=== PATIENT | male | born 1965 | race Two or more races ===

== ENCOUNTER 2021-02-20 05:09 | Emergency (ER) | payer OTHER, SELFPAY ==
--- NOTE | ~2021-02-20 | CT_ITS ---
EXAMINATION: CT HEAD WITHOUT CONTRAST CLINICAL INFORMATION: Syncope. Anticoagulated. COMPARISON: None TECHNIQUE: Contiguous axial imaging was performed from the skull base to vertex without intravenous administration of contrast. This CT examination was performed using dose optimization techniques as appropriate, variously including the following: *Automated exposure control *Adjustment of mA and/or kV according to patient size (this includes techniques or standardized protocols for targeted exams where dose is matched to indication/reason for exam; i.e. extremities or head) *Use of iterative reconstruction technique DLP: 680 mGy-cm FINDINGS: There is no evidence of acute intracranial hemorrhage or territorial infarction. No abnormal mass effect or midline shift is seen. [place] to white matter differentiation is well preserved. No extra-axial fluid collections are identified. The ventricles are normal in size. There is no abnormal attenuation within the brain parenchyma. The osseous structures and soft tissues are normal. The mastoid air cells and visualized portions of the paranasal sinuses are well aerated. CT/CT head/brain wo con IMPRESSION: Unremarkable exam.
--- NOTE | ~2021-02-20 | XR_ITS ---
EXAMINATION: XR CHEST CLINICAL INFORMATION: Dizziness. Syncope. COMPARISON: Chest radiograph 03/20/2019. TECHNIQUE: Frontal view of the chest was obtained. FINDINGS: The cardiac silhouette is enlarged in a rounded configuration compared with 03/20/2019. Multiple unfractured median sternotomy wires and scattered mediastinal vascular clips are noted. No effusions or pneumothoraces are identified. A normal pattern of pulmonary vasculature is noted. Multiple right glenoid suture anchors are noted. XR/XR chest 1V IMPRESSION: -Enlarged cardiac silhouette which may represent cardiomegaly or the presence of a pericardial effusion. Findings are new compared with 03/20/2019. -Lungs clear.
[2021-02-20 05:12] VITALS: BP 120/80; PULSE 70; O2SAT 98
--- NOTE | 2021-02-20 05:16 | ECG_ITS ---
Test Reason : DIZZINESS Blood Pressure : / mmHG Vent. Rate : 062 BPM Atrial Rate : 062 BPM P-R Int : 138 ms QRS Dur : 082 ms QT Int : 438 ms P-R-T Axes : 057 -17 084 degrees QTc Int : 444 ms Normal sinus rhythm Left anterior fascicular block Nonspecific ST abnormality Abnormal ECG No previous ECGs available Referred By: Generic ED Physician Electronically Signed By:MARIUM PADRON MD
[2021-02-20 05:24] VITALS: BP 118/68; PULSE 58; RESP 16; TEMP 36.9; O2SAT 99; BMI 31.6
--- NOTE | 2021-02-20 06:02 | PC.NURSE ---
IV established, labs and EKG obtained. CXR at bedside. Plan to transfer to room 3 once able.
[2021-02-20 06:03] LABS: Basophils Percent Auto 0.6 % (0-2); Eosinophils Absolute Auto 0.1 X10*3/uL (0.0-0.4); Eosinophils Percent Auto 2.2 % (0-4); Hematocrit 44.6 % (42.0-52.0); Hemoglobin 14.6 g/dl (14.0-18.0); Imm Gran Abs Auto 0.01 X10*3/uL (0.00-0.03); Imm Gran Pct Auto 0.2 % (0.0-0.4); Lymphocytes Absolute Auto 1.5 X10*3/uL (1.2-4.9); Lymphocytes Percent Auto 28.9 % (20-40); MANUAL DIFF FLAG NO; Mean Corpuscular HGB Conc 32.7 g/dl (31.0-36.0); Mean Corpuscular Hemoglobin 31.1 pg (27.0-33.0); Mean Corpuscular Volume 94.9 fL (80.0-98.0); Mean Platelet Volume 11.5 fL (9.4-12.4); Monocytes Absolute Auto 0.5 X10*3/uL (0.1-1.2); Monocytes Percent Auto 10.4 % (2-11); Neutrophils Absolute Auto 2.9 x10*3/uL (2.0-8.3); Neutrophils Percent Auto 57.7 % (45-73); Platelet Count 159 X10*3/uL (160-400); Red Cell Distribution Width 14.9 % (11.0-16.0)
[2021-02-20 06:14] LABS: COVID-19 Test Positive (Negative)
[2021-02-20 06:41] LABS: Troponin-I High Sensitivity 7.1 ng/L (<3.5-35.0)
[2021-02-20 07:24] LABS: Anion Gap 13 (12-20); Blood Urea Nitrogen 16 mg/dL (9-16); Calcium 8.8 mg/dL (8.4-10.2); Carbon Dioxide 23 mmol/L (22-29); Chloride 109 mmol/L (96-108); Creatinine Clr Calc Pharmacy 80.4; Estimated Glomerular Filt Rate > 60; Glucose Random 114 mg/dL (60-115); Potassium 4.1 mmol/L (3.3-5.1); Sodium 141 mmol/L (135-145)
--- NOTE | 2021-02-20 07:51 | ED_ITS ---
HPI - Syncope General Chief Complaint: Syncope Stated Complaint: syncope Time Seen by Provider: 02/20/21 05:26 Source: patient and EMS Mode of arrival: EMS Limitations: no limitations History of Present Illness HPI narrative: 55-year-old male came in for evaluation of syncopal episode. Patient tested positive for COVID recently, been having symptoms of generalized weakness, but no chest pain or difficulty breathing. Patient woke up this morning was trying to get water feeling thirsty patient stated that he was walking unbalanced gait, then noted that he is very pale and diaphoretic then patient passed out witnessed by his . Patient has a history of triple bypass surgery 6 months ago, patient is taking blood thinner. Related Data Allergies Allergy/AdvReac Type Severity Reaction Status Date / Time No Known Allergies Allergy Unverified 12/09/19 14:53 Review of Systems Review of Systems: All other systems are reviewed and are negative Constitutional: Reports as per HPI and Reports no additional constitutional complaints Eyes: Reports as per HPI and Reports no additional eye complaints Reports system reviewed and no additional complaints, except as documented Cardiovascular: Reports as per HPI and Reports no additional cardiovascular complaints Respiratory: Reports as per HPI and Reports no additional respiratory complaints Gastrointestinal: Reports as per HPI and Reports no additional gastrointestinal complaints Genitourinary: Reports no additional female genitourinary complaints Musculoskeletal: Reports no additional musculoskeletal complaints Skin/Breast: Reports system reviewed and no additional complaints, except as docu Psychiatric: Reports no additional psychiatric complaints Endocrine: Reports no additional endocrine complaints Hematologic/Lymphatic: Reports no additional hematologic/lymphatic complaints Allergic/Immunologic: Reports no additional allergic/immunologic complaints Reports system reviewed and no additional complaints, except as documented and Reports Abnormal speech present [facility] Past Medical History Medical History HTN (hypertension) Surgical History S/P triple vessel bypass Social History Social History Patient Tobacco Use Status: Former Tobacco user Quit Date: 08/23/20 Tobacco use type: Cigarette Cigarette Packs Per Day: 0.5 Years Smoked: 30 Advance Directives: No Advance Directives Information Provided: Yes Physical Exam Vital Signs: Vital Signs: Last Vital Signs Temp 98.5 F 02/20/21 05:24 Pulse 59 02/20/21 08:25 Resp 18 02/20/21 08:25 BP 113/67 02/20/21 08:25 Pulse Ox 98 02/20/21 08:25 Body Mass Index 31.6 Vital signs have been reviewed as appeared to be correct. Blood pressure normal. Heart rate normal. Respiration rate normal. Temperature normal. Oxygen saturation normal. Appearance: Alert. Oriented X3. No acute distress. Head: Normal external exam. Normocephalic. Atraumatic. No Harman signs noted. No raccoon eyes noted Eyes: PERRLA. EOMI. Conjunctiva and sclera normal. Eyelids normal. ENT: TM's Normal. Pharynx normal. Uvula midline. Dry mucous membranes. No trismus noted. No drooling noted. No muffled voice noted. Neck: Normal inspection. Neck supple. FROM. No adenopathy. Thyroid Normal. No meningeal signs. No neck mass noted. CVS: Normal heart rate and rhythm. Heart sound normal. No murmurs noted. Pulses normal throughout. Respiratory: No respiratory distress. Painless inspiration. Breath sounds norm al. No wheezes/rales/rhonchi noted. Chest nontender. No accessory muscle usage noted or decreased air movement noted. Abdomen: Soft and nontender. Bowel sounds normal in all 4 quadrants. No distenti on noted. No organomegaly noted. No visible injury noted. Back: No CVA tenderness. Full range of motion noted. Skin: Skin warm and dry. Normal skin color. Normal skin turgor. No rashes/lesions/lacerations noted. Extremities: No lower extremity edema. Extremities exhibit normal range of motion. Extremities nontender. Neuro: Oriented X 3. Cranial nerve exam: II-XII are grossly intact No motor deficit. No sensory deficit. Reflexes normal. Course Course Course Narrative: Assessment and plan. 55-year-old male recently diagnosed with COVID had syncopal episode witnessed by his preceded with looking pale and diaphoretic. Patient appeared dehydrated on the physical exam. Patient had a recent open heart surgery for triple bypass, patient today declined chest pain or shortness of breath, patient had unremarkable EKG and troponin x2 was negative. Patient feels better after getting IV fluids. Patient was instructed to self quarantine for next 2 weeks. Because chest x-ray finding of cardiomegaly patient was instructed to follow-up with his child life specialist. Patient on anticoagulation therapy had a negative CT and normal neuro exam. MDM - Syncope Lab Data Attestation: I reviewed the patient's lab results. Result diagrams: 02/20/21 05:53 02/20/21 06:46 Labs: Lab Results 02/20/21 02/20/21 02/20/21 Range/Units 05:53 05:53 05:53 WBC 5.0 (4.8-10.8) X10*3/uL RBC 4.70 (4.60-5.80) X10*6/uL Hgb 14.6 (14.0-18.0) g/dl Hct 44.6 (42.0-52.0) % MCV 94.9 (80.0-98.0) fL MCH 31.1 (27.0-33.0) pg MCHC 32.7 (31.0-36.0) g/dl RDW 14.9 (11.0-16.0) % Plt Count 159 L (160-400) X10*3/uL MPV 11.5 (9.4-12.4) fL Immature Gran % (Auto) 0.2 (0.0-0.4) % Neut % (Auto) 57.7 (45-73) % Lymph % (Auto) 28.9 (20-40) % [place] % (Auto) 10.4 (2-11) % Eos % (Auto) 2.2 (0-4) % Baso % (Auto) 0.6 (0-2) % Lymph # (Auto) 1.5 (1.2-4.9) X10*3/uL [place] # (Auto) 0.5 (0.1-1.2) X10*3/uL Eos # (Auto) 0.1 (0.0-0.4) X10*3/uL Baso # (Auto) 0.0 (0.0-0.2) X10*3/uL Abs Immat Gran (auto) 0.01 (0.00-0.03) X10*3/uL Absolute Neuts (auto) 2.9 (2.0-8.3) x10*3/uL Absolute Nucleated RBC 0.000 (0.0-0.012) X10*3/uL Nucleated RBC % (auto) 0.0 (0.0-0.2) /100WBC Sodium (135-145) mmol/L Potassium (3.3-5.1) mmol/L Chloride (96-108) mmol/L Carbon Dioxide (22-29) mmol/L Anion Gap (12-20) BUN (9-16) mg/dL Creatinine (0.5-1.4) mg/dL Estim Creat Clear Calc Estimated GFR Random Glucose (60-115) mg/dL Calcium (8.4-10.2) mg/dL Troponin I High Sens 7.1 (<3.5-35.0) ng/L B-Natriuretic Peptide 55 (<100) pg/mL COVID-19 (KIM) Positive A (Negative) COVID-19 Clin Com See Note 02/20/21 02/20/21 Range/Units 06:46 09:25 WBC (4.8-10.8) X10*3/uL RBC (4.60-5.80) X10*6/uL Hgb (14.0-18.0) g/dl Hct (42.0-52.0) % MCV (80.0-98.0) fL MCH (27.0-33.0) pg MCHC (31.0-36.0) g/dl RDW (11.0-16.0) % Plt Count (160-400) X10*3/uL MPV (9.4-12.4) fL Immature Gran % (Auto) (0.0-0.4) % Neut % (Auto) (45-73) % Lymph % (Auto) (20-40) % [place] % (Auto) (2-11) % Eos % (Auto) (0-4) % Baso % (Auto) (0-2) % Lymph # (Auto) (1.2-4.9) X10*3/uL [place] # (Auto) (0.1-1.2) X10*3/uL Eos # (Auto) (0.0-0.4) X10*3/uL Baso # (Auto) (0.0-0.2) X10*3/uL Abs Immat Gran (auto) (0.00-0.03) X10*3/uL Absolute Neuts (auto) (2.0-8.3) x10*3/uL Absolute Nucleated RBC (0.0-0.012) X10*3/uL Nucleated RBC % (auto) (0.0-0.2) /100WBC Sodium 141 (135-145) mmol/L Potassium 4.1 (3.3-5.1) mmol/L Chloride 109 H (96-108) mmol/L Carbon Dioxide 23 (22-29) mmol/L Anion Gap 13 (12-20) BUN 16 (9-16) mg/dL Creatinine 1.12 (0.5-1.4) mg/dL Estim Creat Clear Calc 80.4 Estimated GFR > 60 Random Glucose 114 (60-115) mg/dL Calcium 8.8 (8.4-10.2) mg/dL Troponin I High Sens 7.5 (<3.5-35.0) ng/L B-Natriuretic Peptide (<100) pg/mL COVID-19 (KIM) (Negative) COVID-19 Clin Com Imaging Data Chest x-ray: Radiologist's impression: Enlarged cardiac silhouette which may represent cardiomegaly or the presence of a pericardial effusion. Findings are new compared with 1 CT scan - head: Radiologist's impression: Unremarkable exam. ECG Data Attestation: I personally reviewed and interpreted this ECG as follows: Interpretation: Normal sinus rhythm at 62 beats per minutes, normal intervals, no ST-T changes Discharge Plan Discharge Clinical Impression: Vasovagal syncope, COVID-19 virus infection, Dehydration Patient Disposition: Home, Self-Care Instructions: Dehydration (ED), Covid-19 Viral Syndrome and Novel Coronavirus (ED) Hey/Ath Referrals: Physician,Unknown J [Primary Care Provider] - 2 days Stand Alone Forms: Work/School Release
[2021-02-20 08:24] LABS: B Type Natriuretic Peptide 55 pg/mL (<100)
[2021-02-20 08:25] VITALS: BP 113/67; PULSE 59; RESP 18; O2SAT 98
[2021-02-20 09:55] LABS: Troponin-I High Sensitivity 7.5 ng/L (<3.5-35.0)
--- NOTE | 2021-02-20 10:30 | PC.NURSE ---
NAD, SR ON MONITOR, NO COMPLAINTS
[2021-02-20] MEDS: 0.9 % Sodium Chloride 1,000 ML 999 ML IVCONT (11:05)
== END 2021-02-20 11:13 | disposition home or self-care (01) ==
PROVIDERS: Student in an Organized Health Care Education/Training Program; Emergency Provider Emergency Medicine
DX: U07.1 COVID-19 (principal); R55 Syncope and collapse; E86.0 Dehydration; Z79.01 Long term (current) use of anticoagulants
CPT/HCPCS: 36415; 70450; 71045; 80048; 83880; 84484; 85025; 87635; 93005; 96360; 99284

== ENCOUNTER 2022-11-08 16:01 | Emergency (ER) | payer OTHER, SELFPAY ==
--- NOTE | 2022-11-08 16:06 | ED.GENADULT ---
HPI - General Adult General Chief complaint: Abdominal Pain Stated complaint: abd pain/n/d/v Related Data Home Medications Medication Instructions Recorded Confirmed amlodipine 5 mg tablet 5 mg PO DAILY 11/09/22 11/18/22 ascorbic acid (vitamin C) 500 mg 500 mg PO DAILY 11/09/22 11/18/22 tablet (Vitamin C) aspirin 81 mg tablet,delayed 81 mg PO DAILY 11/09/22 11/18/22 release atorvastatin 80 mg tablet 80 mg PO DAILY 11/09/22 11/18/22 carvedilol 25 mg tablet 25 mg PO BID 11/09/22 11/18/22 clopidogrel 75 mg tablet 75 mg PO QAM 11/09/22 11/18/22 Allergies Allergy/AdvReac Type Severity Reaction Status Date / Time aloe vera [From Vagisil] Allergy Swelling Verified 11/08/22 16:07 benzocaine [From Vagisil] Allergy Swelling Verified 11/08/22 16:07 mineral oil [From Vagisil] Allergy Swelling Verified 11/08/22 16:07 resorcinol [From Vagisil] Allergy Swelling Verified 11/08/22 16:07 starch [From Vagisil] Allergy Swelling Verified 11/08/22 16:07 vitamin E (d-alpha Allergy Swelling Verified 11/08/22 16:07 tocopherol) [From Vagisil] vitamins A and D Allergy Swelling Verified 11/08/22 16:07 [From Vagisil] [facility] Past Medical History Medical History CAD (coronary artery disease) HTN (hypertension) Hyperlipidemia Surgical History S/P CABG (coronary artery bypass graft) S/P triple vessel bypass Social History Social History Household Members: Spouse Housing: Apartment Do you presently have visiting nurse or other home services: No Alcohol intake: never Patient Tobacco Use Status: Former Tobacco user Quit Date: 08/23/20 Tobacco use type: Cigarette Cigarette Packs Per Day: 0.5 Years Smoked: 30 service: No Physical Exam ED Vital Signs: BMI result Body Mass Index 34.2 Course Course Course Narrative: RME performed by Lien Marcano, PA-C. Patient is a 57 year old assigned male at presenting to the emergency department with abdominal pain. Labs ordered. Patient placed back in the waiting room pending room availability and results. Patient eloped prior to being evaluated by a primary provider. Medical Decision Making Lab Data 11/08/22 16:27 11/08/22 16:27 Labs: Lab Results 11/08/22 Range/Units 16:27 WBC 10.8 (4.8-10.8) X10*3/uL RBC 4.29 L (4.60-5.80) X10*6/uL Hgb 13.2 L (14.0-18.0) g/dl Hct 39.3 L (42.0-52.0) % MCV 91.6 (80.0-98.0) fL MCH 30.8 (27.0-33.0) pg MCHC 33.6 (31.0-36.0) g/dl RDW 13.2 (11.0-16.0) % Plt Count 198 (160-400) X10*3/uL MPV 11.5 (9.4-12.4) fL Immature Gran % (Auto) 0.2 (0.0-0.4) % Neut % (Auto) 80.3 H (45-73) % Lymph % (Auto) 11.4 L (20-40) % [place] % (Auto) 7.0 (2-11) % Eos % (Auto) 0.8 (0-4) % Baso % (Auto) 0.3 (0-2) % Lymph # (Auto) 1.2 (1.2-4.9) X10*3/uL [place] # (Auto) 0.8 (0.1-1.2) X10*3/uL Eos # (Auto) 0.1 (0.0-0.4) X10*3/uL Baso # (Auto) 0.0 (0.0-0.2) X10*3/uL Abs Immat Gran (auto) 0.02 (0.00-0.03) X10*3/uL Absolute Neuts (auto) 8.7 H (2.0-8.3) x10*3/uL Absolute Nucleated RBC 0.000 (0.0-0.012) X10*3/uL Nucleated RBC % (auto) 0.0 (0.0-0.2) /100WBC Sodium 142 (135-145) mmol/L Potassium 4.0 (3.3-5.1) mmol/L Chloride 108 (96-108) mmol/L Carbon Dioxide 27 (22-29) mmol/L Anion Gap 11 L (12-20) BUN 10 (9-16) mg/dL Creatinine 1.05 (0.5-1.4) mg/dL Estim Creat Clear Calc 87.0 Estimated GFR > 60 Random Glucose 117 H (60-115) mg/dL Calcium 9.5 D (8.4-10.2) mg/dL Magnesium 2.0 (1.6-2.6) mg/dL Total Bilirubin 0.6 (0.0-1.0) mg/dL AST 19 (5-37) U/L ALT 20 (0-40) U/L Alkaline Phosphatase 75 (39-117) U/L Total Protein 7.1 (6.5-8.0) g/dL Albumin 4.1 (3.5-5.0) g/dL COVID-19 (KIM) Negative (Negative) COVID-19 Clin Com See Note Discharge Plan Discharge Clinical Impression: Abdominal pain Patient Disposition: Elopement Prescriptions: No Action atorvastatin 80 mg tablet 80 mg PO DAILY carvedilol 25 mg tablet 25 mg PO BID clopidogrel 75 mg tablet 75 mg PO QAM amlodipine 5 mg tablet 5 mg PO DAILY aspirin 81 mg tablet,delayed release (DR/EC) 81 mg PO DAILY ascorbic acid (vitamin C) [Vitamin C] 500 mg Tablet 500 mg PO DAILY Interventions: ED Discharge Assessment Last Done: 11/08/22 22:37 Discharge Date/Time: 11/08/22 22:38
[2022-11-08 16:08] VITALS: BP 131/70; PULSE 67; RESP 19; TEMP 36.6; O2SAT 98; BMI 34.2
[2022-11-08 16:33] LABS: MANUAL DIFF FLAG NO
[2022-11-08 16:34] LABS: Basophils Percent Auto 0.3 % (0-2); Eosinophils Absolute Auto 0.1 X10*3/uL (0.0-0.4); Eosinophils Percent Auto 0.8 % (0-4); Hematocrit 39.3 % (42.0-52.0); Hemoglobin 13.2 g/dl (14.0-18.0); Imm Gran Abs Auto 0.02 X10*3/uL (0.00-0.03); Imm Gran Pct Auto 0.2 % (0.0-0.4); Lymphocytes Absolute Auto 1.2 X10*3/uL (1.2-4.9); Lymphocytes Percent Auto 11.4 % (20-40); Mean Corpuscular HGB Conc 33.6 g/dl (31.0-36.0); Mean Corpuscular Hemoglobin 30.8 pg (27.0-33.0); Mean Corpuscular Volume 91.6 fL (80.0-98.0); Mean Platelet Volume 11.5 fL (9.4-12.4); Monocytes Absolute Auto 0.8 X10*3/uL (0.1-1.2); Neutrophils Absolute Auto 8.7 x10*3/uL (2.0-8.3); Neutrophils Percent Auto 80.3 % (45-73); Platelet Count 198 X10*3/uL (160-400); Red Blood Count 4.29 X10*6/uL (4.60-5.80); Red Cell Distribution Width 13.2 % (11.0-16.0); White Blood Count 10.8 X10*3/uL (4.8-10.8)
[2022-11-08 16:55] LABS: Alanine Aminotransferase 20 U/L (0-40); Albumin Level 4.1 g/dL (3.5-5.0); Alkaline Phosphatase 75 U/L (39-117); Anion Gap 11 (12-20); Aspartate Amino Transferase 19 U/L (5-37); Bilirubin Total 0.6 mg/dL (0.0-1.0); Blood Urea Nitrogen 10 mg/dL (9-16); Calcium 9.5 mg/dL (8.4-10.2); Carbon Dioxide 27 mmol/L (22-29); Chloride 108 mmol/L (96-108); Estimated Glomerular Filt Rate > 60; Glucose Random 117 mg/dL (60-115); Sodium 142 mmol/L (135-145); Total Protein 7.1 g/dL (6.5-8.0)
[2022-11-08 17:00] LABS: COVID-19 Test Negative (Negative); IDNOW Serial# 6674DD1D
== END 2022-11-08 22:38 | disposition left against medical advice (07) ==
PROVIDERS: Physician Assistant Medical; Emergency Provider Emergency Medicine
DX: R10.9 Unspecified abdominal pain (principal); R11.2 Nausea with vomiting, unspecified; I10 Essential (primary) hypertension; Z87.891 Personal history of nicotine dependence; Z20.822 Contact with and (suspected) exposure to COVID-19
CPT/HCPCS: 80053; 83735; 85025; 87635; 99282; 99283

== ENCOUNTER 2022-11-09 08:10 | Inpatient (IN) | payer OTHER, SELFPAY ==
--- NOTE | ~2022-11-09 | CT_ITS ---
EXAMINATION: CT ABDOMEN AND PELVIS WITH CONTRAST CLINICAL INFORMATION: Right lower quadrant pain. COMPARISON: None available. TECHNIQUE: Multidetector volumetric images were obtained from the superior aspect of the liver through the pubic symphysis following administration 85 mL of Omnipaque 350 intravenous contrast. Sagittal and coronal reformatted images were obtained on the technologist's workstation. Oral contrast: No This CT examination was performed using dose optimization techniques as appropriate, variously including the following: *Automated exposure control *Adjustment of mA and/or kV according to patient size (this includes techniques or standardized protocols for targeted exams where dose is matched to indication/reason for exam; i.e. extremities or head) *Use of iterative reconstruction technique DLP: 669 mGy-cm FINDINGS: LUNG BASES: Mild bibasilar atelectasis. No pericardial or pleural effusion. LIVER, GALLBLADDER, AND BILIARY TREE: The liver is normal in size, shape, and attenuation. No focal hepatic lesion or biliary ductal dilatation is present. The gallbladder is unremarkable with no evidence of radiopaque gallstones, gallbladder wall thickening, or obvious pericholecystic inflammatory changes. PANCREAS: Unremarkable. No perinephric inflammatory changes seen. SPLEEN: Unremarkable. ADRENAL GLANDS: Unremarkable. KIDNEYS AND URETERS: The kidneys are normal in size, shape, and attenuation. No hydronephrosis, hydroureter, or calculi seen. Mild bilateral perinephric stranding. BLADDER: Partially distended. Minimal nonspecific urinary bladder wall prominence, which could be related to lack of distention. GASTROINTESTINAL TRACT: The appendix is distended, measuring up to approximately 1.1 cm in AP dimension. There is low attenuation within the lumen of the appendix, without definite calcific appendicoliths identified. There is stranding in the fat around the appendix and in the right lower quadrant. Trace fluid in the right lower quadrant. The findings raise concern for acute appendicitis. No organized fluid collection is seen. No free air is identified. Stomach is nondistended. No small or large bowel obstruction. No acute findings identified otherwise in the small and large bowel loops is evident.. ABDOMINAL WALL: Small fat-containing umbilical hernia. LYMPH NODES: No pathologically enlarged lymph nodes are seen. VASCULAR: Normal caliber aorta. PELVIC VISCERA: Unremarkable. OSSEOUS STRUCTURES: Mild degenerative changes in the spine. Mild bilateral SI joint arthritis. Symphysis pubis degeneration. CT/CT abdomen pelvis w IV con IMPRESSION: 1. Appendix findings and abnormal findings right lower quadrant, as detailed above, is suspicious for acute appendicitis. Recommend surgical consultation and management.. 2. Mild bibasilar atelectasis. Additional findings and details as above. Fleischner guidelines were followed.
[2022-11-09 08:12] VITALS: BP 121/67; PULSE 67; TEMP 36.3; O2SAT 97; BMI 34.2
--- NOTE | 2022-11-09 08:25 | ED_ITS ---
HPI - Abdominal Pain General Chief Complaint: Abdominal Pain Stated Complaint: r lower abd pain Time Seen by Provider: 11/09/22 08:18 Source: patient and family Mode of arrival: ambulatory Limitations: no limitations History of Present Illness HPI narrative: 57 yo male with hx of CABG x 3 2 years ago, HTN, HLD, currently on plavix and aspirin here with c/o 2 days of RLQ pain some nausea and preceding diarrhea that has stopped. No urinary symptoms and no hx of stones. He did eat breakfast this AM about 2 hours prior to arrival. The pain has been constant and is worse with movements and touching the abdomen. He has not had a fever. MD elicited complaint: abdominal pain Pertinent past history: none Onset (ago): day(s) (2) Pain Consistency: constant Location: RLQ Severity: moderate Quality: aching Radiation: none Migration to: no migration Exacerbating factors: movement Relieving factors: nothing Associated symptoms: nausea Related Data Allergies Allergy/AdvReac Type Severity Reaction Status Date / Time aloe vera [From Vagisil] Allergy Swelling Verified 11/08/22 16:07 benzocaine [From Vagisil] Allergy Swelling Verified 11/08/22 16:07 mineral oil [From Vagisil] Allergy Swelling Verified 11/08/22 16:07 resorcinol [From Vagisil] Allergy Swelling Verified 11/08/22 16:07 starch [From Vagisil] Allergy Swelling Verified 11/08/22 16:07 vitamin E (d-alpha Allergy Swelling Verified 11/08/22 16:07 tocopherol) [From Vagisil] vitamins A and D Allergy Swelling Verified 11/08/22 16:07 [From Vagisil] Review of Systems Review of Systems Constitutional : No Weight loss, No Fever, No Chills Cardiovascular : No Chest Pain, No SOB, NoEdema Respiratory : No Cough, No Sputum, No Wheezing Gastrointestinal : Positive Nausea, no Vomiting, no Diarrhea, positive abdominal Pain, No Hematochezia, No Melena Genitourinary : No Dysuria, No Urinary Frequency, No Hematuria, No Urgency Musculoskeletal : No joint pain, No Myalgias, No Joint Swelling Skin : No Skin Lesions, No rash Neuro : No Weakness, No Numbness, No Dizziness, No Headache Psych : No Anxiety/Panic, No Depression All other systems reviewed and are negative. [facility] Past Medical History Attestation statement: The following information was validated with the patient. Medical History CAD (coronary artery disease) HTN (hypertension) Hyperlipidemia Surgical History S/P triple vessel bypass Social History Social History Alcohol intake: never Patient Tobacco Use Status: Former Tobacco user Quit Date: 08/23/20 Tobacco use type: Cigarette Cigarette Packs Per Day: 0.5 Years Smoked: 30 Smoked in Last 30 Days: No Use of substances other than those prescribed or required for medical reasons: No Advance Directives: No Advance Directives Information Provided: No Physical Exam ED Vital Signs: Vital Signs - 24 hr 11/09/22 08:12 11/09/22 08:50 Temperature 97.3 F 98.0 F Pulse Rate 67 58 Respiratory Rate 18 Blood Pressure 121/67 118/64 Pulse Oximetry 97 96 Oxygen Delivery Method Room Air Room Air BMI result Body Mass Index 34.2 Appearance: Alert. Oriented X3. No acute distress. Eyes: Pupils equal, round and reactive to light. ENT: Pharynx normal. Neck: Normal inspection. Neck supple. CVS: Normal heart rate and rhythm. Pulses normal. Respiratory: No respiratory distress. Breath sounds normal. Abdomen: Soft and moderate RLQ ttp no mass felt, + Rovsings sign Skin: Skin warm and dry. Normal skin color. Normal skin turgor. Extremities: No lower extremity edema. No calf ttp Neuro: Oriented X 3. No motor deficit. No sensory deficit. Course Course Course Narrative: call to surgery - 11am Medical Decision Making Medical Decision Making [facility] Narrative: 57 yo male with hx of CABG x 3 2 years ago, HTN, HLD, currently on plavix and aspirin here with RLQ pain and some nausea at this time will need labs and urine CT scan to evaluate for appendicitis, diverticulitis, colitis or renal colic. I have kept him NPO and will order IV morphine for pain. Given exam and 2 days of pain AAA and ischemic colitis unlikely is abdomen is not acute. Differential Diagnosis Differential Diagnoses: The differential diagnosis associated with the presentation includes appendicitis, diverticulitis, colitis, renal colic Admission/Observation Consideration of admission/observation: Escalation of care including admission/observation considered admit for appendicitis - start zosyn per surgery Consult Healthcare Provider Management of the patient was discussed with: Hospitalist and Medical Donation Professional ([facility] surgery ) Dr. Mc to admit hospitalist notified of surgeries request for consult Lab Data MDM Lab Attestation statement: I reviewed the patient's lab results. 11/09/22 09:07 11/09/22 09:07 Labs: Lab Results 11/09/22 11/09/22 11/09/22 Range/Units 09:05 09:07 09:07 WBC 8.1 (4.8-10.8) X10*3/uL RBC 4.36 L (4.60-5.80) X10*6/uL Hgb 13.3 L (14.0-18.0) g/dl Hct 39.7 L (42.0-52.0) % MCV 91.1 (80.0-98.0) fL MCH 30.5 (27.0-33.0) pg MCHC 33.5 (31.0-36.0) g/dl RDW 13.2 (11.0-16.0) % Plt Count 187 (160-400) X10*3/uL MPV 11.5 (9.4-12.4) fL Immature Gran % (Auto) 0.2 (0.0-0.4) % Neut % (Auto) 72.1 (45-73) % Lymph % (Auto) 18.5 L (20-40) % [place] % (Auto) 7.6 (2-11) % Eos % (Auto) 1.2 (0-4) % Baso % (Auto) 0.4 (0-2) % Lymph # (Auto) 1.5 (1.2-4.9) X10*3/uL [place] # (Auto) 0.6 (0.1-1.2) X10*3/uL Eos # (Auto) 0.1 (0.0-0.4) X10*3/uL Baso # (Auto) 0.0 (0.0-0.2) X10*3/uL Abs Immat Gran (auto) 0.02 (0.00-0.03) X10*3/uL Absolute Neuts (auto) 5.9 (2.0-8.3) x10*3/uL Absolute Nucleated RBC 0.000 (0.0-0.012) X10*3/uL Nucleated RBC % (auto) 0.0 (0.0-0.2) /100WBC Sodium 142 (135-145) mmol/L Potassium 3.9 (3.3-5.1) mmol/L Chloride 110 H (96-108) mmol/L Carbon Dioxide 23 (22-29) mmol/L Anion Gap 13 (12-20) BUN 10 (9-16) mg/dL Creatinine 1.07 (0.5-1.4) mg/dL Estim Creat Clear Calc 85.4 Estimated GFR > 60 Random Glucose 137 H (60-115) mg/dL Calcium 9.2 (8.4-10.2) mg/dL Magnesium 2.3 (1.6-2.6) mg/dL Total Bilirubin 0.9 (0.0-1.0) mg/dL Direct Bilirubin 0.3 (0.0-0.5) mg/dL AST 20 (5-37) U/L ALT 19 (0-40) U/L Alkaline Phosphatase 64 (39-117) U/L Total Protein 7.0 (6.5-8.0) g/dL Albumin 3.8 (3.5-5.0) g/dL Lipase 21 (8-78) U/L Urine Color Yellow Urine Appearance Clear Urine pH 6.0 (5.0-9.0) Ur Specific [place] 1.020 (1.005-1.025) Urine Protein Trace (Neg-Trace) mg/dL Urine Glucose (UA) Negative (Negative) mg/dL Urine Ketones Trace (Negative) mg/dL Urine Blood Moderate (2+) H (Negative) Urine Nitrite Negative (Negative) Ur Leukocyte Esterase Trace H (Negative) Urine RBC >20 H (0-2) /HPF Urine WBC 0-5 (0-5) /HPF Ur Squamous Epith Cells 0-2 (0-2) /HPF Urine Bacteria None Seen (None Seen) Hyaline Casts 3-5 (0-2) /LPF Independent Interpretation I performed an independent interpretation of an: CT Scan (+ appendicitis) Radiology Impression Discussion of test interpretation with radiology: I have reviewed the radiologist's reading. Independent Historian Clinical information obtained from an independent historian. History obtained from or confirmed by: Spouse External Record Review External record reviewed: Inpatient record Medications Administered Discontinued Medications Generic Name Dose Route Start Last Admin Trade Name Lidia PRN Reason Stop Dose Admin Iohexol 85 ml 11/09/22 10:19 11/09/22 10:19 Iohexol 350 Mg/Ml 75 Ml Infus..Btl IV 11/09/22 10:20 85 ml ONCE ONE Administration Morphine Sulfate 4 mg 11/09/22 08:30 11/09/22 11:09 Morphine Sulfate 4 Mg/Ml Cartridge IVPUSH 11/09/22 08:31 Not Given ONCE ONE Protocol Ondansetron HCl 4 mg 11/09/22 08:30 11/09/22 11:09 Ondansetron Hcl 4 Mg/2 Ml Vial IVPUSH 11/09/22 08:31 Not Given ONCE ONE Discharge Plan Discharge Clinical Impression: Acute appendicitis Qualifiers: Acute appendicitis type: with localized peritonitis Appendicitis gangrene presence: without gangrene Appendicitis perforation presence: without perforation Appendicitis abscess presence: without abscess Qualified Code(s): K35.30 - Acute appendicitis with localized peritonitis, without perforation or gangrene Abdominal pain Qualifiers: Abdominal location: right lower quadrant Qualified Code(s): R10.31 - Right lower quadrant pain Patient Disposition: Admitted As Inpatient
[2022-11-09 08:50] VITALS: BP 118/64; PULSE 58; RESP 18; TEMP 36.7; O2SAT 96
[2022-11-09 09:14] LABS: Appearance Urine Clear; Color Urine Yellow; Glucose Urine UA Negative (Negative); Leukocyte Esterase Urine Trace (Negative); Nitrite Urine Negative (Negative); UMIC TRIGGER UACC YES; Urine Blood Moderate (2+) (Negative); Urine Ketones Trace mg/dL (Negative); Urine Protein Trace mg/dL (Neg-Trace)
[2022-11-09 09:19] LABS: Bacteria Urine None Seen (None Seen); RBC Urine >20 /HPF (0-2); Squamous Epithelial Cell Urine 0-2 /HPF (0-2); WBC Urine 0-5 /HPF (0-5)
[2022-11-09 09:21] LABS: MANUAL DIFF FLAG NO
[2022-11-09 09:22] LABS: Basophils Percent Auto 0.4 % (0-2); Eosinophils Absolute Auto 0.1 X10*3/uL (0.0-0.4); Eosinophils Percent Auto 1.2 % (0-4); Hematocrit 39.7 % (42.0-52.0); Hemoglobin 13.3 g/dl (14.0-18.0); Imm Gran Abs Auto 0.02 X10*3/uL (0.00-0.03); Imm Gran Pct Auto 0.2 % (0.0-0.4); Lymphocytes Absolute Auto 1.5 X10*3/uL (1.2-4.9); Lymphocytes Percent Auto 18.5 % (20-40); Mean Corpuscular HGB Conc 33.5 g/dl (31.0-36.0); Mean Corpuscular Hemoglobin 30.5 pg (27.0-33.0); Mean Corpuscular Volume 91.1 fL (80.0-98.0); Mean Platelet Volume 11.5 fL (9.4-12.4); Monocytes Absolute Auto 0.6 X10*3/uL (0.1-1.2); Monocytes Percent Auto 7.6 % (2-11); Neutrophils Absolute Auto 5.9 x10*3/uL (2.0-8.3); Neutrophils Percent Auto 72.1 % (45-73); Platelet Count 187 X10*3/uL (160-400); Red Blood Count 4.36 X10*6/uL (4.60-5.80); Red Cell Distribution Width 13.2 % (11.0-16.0); White Blood Count 8.1 X10*3/uL (4.8-10.8)
--- NOTE | 2022-11-09 09:30 | PC.NURSE ---
pt requested to not be medicated with morphine and zofran at this time. reports that he is not to the point of needing it yet, but will alert RN if that changes.
[2022-11-09 09:40] LABS: Alanine Aminotransferase 19 U/L (0-40); Albumin Level 3.8 g/dL (3.5-5.0); Alkaline Phosphatase 64 U/L (39-117); Anion Gap 13 (12-20); Aspartate Amino Transferase 20 U/L (5-37); Bilirubin Direct 0.3 mg/dL (0.0-0.5); Bilirubin Total 0.9 mg/dL (0.0-1.0); Blood Urea Nitrogen 10 mg/dL (9-16); Calcium 9.2 mg/dL (8.4-10.2); Carbon Dioxide 23 mmol/L (22-29); Chloride 110 mmol/L (96-108); Creatinine Clr Calc Pharmacy 85.4; Estimated Glomerular Filt Rate > 60; Glucose Random 137 mg/dL (60-115); Lipase 21 U/L (8-78); Magnesium 2.3 mg/dL (1.6-2.6); Potassium 3.9 mmol/L (3.3-5.1); Sodium 142 mmol/L (135-145)
[2022-11-09] MEDS: iohexoL 350 MG/ML 75 ML INFUS..BTL 85 ML IV (10:19)
--- NOTE | 2022-11-09 11:22 | PM.HPGS ---
History of Present Illness History of Present Illness Date of Service: 11/09/22 Chief complaint: r lower abd pain Narrative: Kenneth Alonso is a 57 year old male who is currently on both aspirin and Plavix because of a history of coronary artery disease who presents with abdominal pain, normal white count and a CT demonstrating non perforated appendicitis. The patient reports [facility] Past Medical History Medical History (Updated 11/09/22 @ 11:25 by David Mc MD) CAD (coronary artery disease) HTN (hypertension) Hyperlipidemia Surgical History Surgical History (Updated 11/09/22 @ 11:24 by David Mc MD) S/P triple vessel bypass Social History Social History Alcohol intake: never Patient Tobacco Use Status: Former Tobacco user Quit Date: 08/23/20 Tobacco use type: Cigarette Cigarette Packs Per Day: 0.5 Years Smoked: 30 Smoked in Last 30 Days: No Use of substances other than those prescribed or required for medical reasons: No Advance Directives: No Advance Directives Information Provided: No Meds Allergies Allergy/AdvReac Type Severity Reaction Status Date / Time aloe vera [From Vagisil] Allergy Swelling Verified 11/08/22 16:07 benzocaine [From Vagisil] Allergy Swelling Verified 11/08/22 16:07 mineral oil [From Vagisil] Allergy Swelling Verified 11/08/22 16:07 resorcinol [From Vagisil] Allergy Swelling Verified 11/08/22 16:07 starch [From Vagisil] Allergy Swelling Verified 11/08/22 16:07 vitamin E (d-alpha Allergy Swelling Verified 11/08/22 16:07 tocopherol) [From Vagisil] vitamins A and D Allergy Swelling Verified 11/08/22 16:07 [From Vagisil] Active Medications: Current Medications Piperacillin Sod/Tazobactam (Sod 3.375 gm/ Sodium Chloride) 50 mls @ 100 mls/hr IV ONCE ONE Stop: 11/09/22 11:44 Sodium Chloride (Ns) 1,000 mls @ 75 mls/hr IVCONT .[id number] GET Home Medications Medication Instructions Recorded Confirmed Last Taken Type amlodipine 5 mg tablet 5 mg PO DAILY 11/09/22 11/09/22 Unknown History ascorbic acid (vitamin C) 500 mg 500 mg PO DAILY 11/09/22 11/09/22 11/09/22 History tablet (Vitamin C) aspirin 81 mg tablet,delayed 81 mg PO DAILY 11/09/22 11/09/22 11/09/22 History release atorvastatin 80 mg tablet 80 mg PO DAILY 11/09/22 11/09/22 Unknown History carvedilol 25 mg tablet 25 mg PO BID 11/09/22 11/09/22 11/09/22 History clopidogrel 75 mg tablet 75 mg PO QAM 11/09/22 11/09/22 11/09/22 History Physical Exam Vital Signs: Vital Signs: Last Vital Signs Temp 98.0 F 11/09/22 08:50 Pulse 58 11/09/22 08:50 Resp 18 11/09/22 08:50 BP 118/64 11/09/22 08:50 Pulse Ox 96 11/09/22 08:50 O2 Del Method Room Air 11/09/22 08:50 BMI result Body Mass Index 34.2 The patient is non-toxic & in good spirits NC/AT, PERRLA, EOMI Mood, affect & judgment all appear appropriate Sclera anicteric conjunctiva pink and moist Oropharynx is clear with no aphthous ulcers, Mallampati class 4, mucous membranes moist Neck is supple with no masses, adenopathy or bruits Heart is regular, normal S1-S2 no rubs or murmurs Lungs are clear and equal anteriorly with no audible wheezing, rubs or dullness to percussion Abdomen is obese with no demonstrable hernias. There is focal right lower quadrant discomfort on deep palpation. No HSM, rebound, rigidity, guarding, masses or bruits are present. Rectal exam is deferred Skin has good turgor and is free of rashes Extremities free of cyanosis clubbing edema Results Results Labs: Short CBC 11/09/22 Range/Units 09:07 WBC 8.1 (4.8-10.8) X10*3/uL Hgb 13.3 L (14.0-18.0) g/dl Hct 39.7 L (42.0-52.0) % Plt Count 187 (160-400) X10*3/uL BMP 11/09/22 09:07 Sodium 142 Potassium 3.9 Chloride 110 H Carbon Dioxide 23 BUN 10 Creatinine 1.07 Calcium 9.2 Liver Function 11/09/22 Range/Units 09:07 Total Bilirubin 0.9 (0.0-1.0) mg/dL Direct Bilirubin 0.3 (0.0-0.5) mg/dL AST 20 (5-37) U/L ALT 19 (0-40) U/L Alkaline Phosphatase 64 (39-117) U/L Albumin 3.8 (3.5-5.0) g/dL Urine 11/09/22 Range/Units 09:05 Urine Color Yellow Urine Appearance Clear Urine pH 6.0 (5.0-9.0) Ur Specific [place] 1.020 (1.005-1.025) Urine Protein Trace (Neg-Trace) mg/dL Urine Glucose (UA) Negative (Negative) mg/dL Abdomen CT scan report/results: report reviewed and image reviewed CT scan - pelvis: report reviewed and image reviewed Assessment and Plan (1) Appendicitis with nonoperative management: Status: Acute (2) Acute appendicitis: Qualifiers: Acute appendicitis type: with localized peritonitis Appendicitis abscess presence: without abscess Appendicitis gangrene presence: without gangrene Appendicitis perforation presence: without perforation Qualified Code(s): K35.30 - Acute appendicitis with localized peritonitis, without perforation or gangrene Status: Acute (3) CAD (coronary artery disease): Status: Acute (4) HTN (hypertension): Status: Acute (5) Anticoagulated: Status: Acute (6) S/P triple vessel bypass: Status: Acute (7) Morbid (severe) obesity due to excess calories: Status: Acute (8) Impaired glucose regulation: Status: Acute Plan Will admit for IV antibiotics, bowel rest and hydration Patient is currently anticoagulated with aspirin and Plavix and does not have a normal white count so a trial of non operative management will be planned. If okay, hold Plavix but continue ASA, 81mg in case operative management is required. Will consult Medicine/Cardiology given the patient's significant cardiac history Time Spent With Patient Time: Total time managing care of this patient today ____ minutes. Quality Stroke Does the patient have a stroke diagnosis?: No VTE Prior VTE?: No VTE Risk Level:: Surgical - moderate VTE Device Contraindication: N/A - Device Ordered VTE Drug Contraindication: N/A - Med Ordered Procedures Date of Service Date of Service: 11/09/22
[2022-11-09] MEDS: 0.9 % Sodium Chloride 1,000 ML 75 ML IVCONT (11:33)
[2022-11-09] MEDS: Piperacillin Sodium/Tazobactam 3.375 GM in 0.9 % Sodium Chloride 50 ML IV ×3 (11:33→23:23)
--- NOTE | 2022-11-09 11:45 | PHA.MEDREC ---
Pharmacy Consult ? Medication Reconciliation Pharmacy has completed the medication reconciliation. spoke with patient to confirm medications.
--- NOTE | 2022-11-09 12:02 | P.CONHOSP_ITS ---
History of Present Illness Data of Consult Service Date: 11/09/22 Requesting physician: David Mc Primary Care Provider: Jolene Rios MD [facility] Reason for consult: h/o CAD/CABG, pre-op eval 57-year-old male with history of hypertension, hyperlipidemia, coronary artery disease s/p CABG 08/2020 on DAPT who is a former smoker with about 15 pack year history who quit 2 years ago admitted to general surgery for acute appendicitis. Current plan per surgery is conservative but surgical intervention remains a possibility. He continues following [facility] cardiology and had myocardial perfusion study showing submaximal ETT and findings consistent with scarring and mild small reversible anterior basilar defect consistent with minimal ischemia. LV function normal with EF 60% at rest and 61% with stress with normal wall motion and thickening. Also showed paradoxical septal wall motion consistent with prior cardiac surgery. He denies any dyspnea on exertion, lightheadedness, palpitations, or chest pain. He is able to walk distances or climb a flight of stairs without developing on any symptoms. He is functional around and outside the home. He does not use any illicit drugs or drink alcohol. He does not use marijuana. No history of chronic lung disease. Review of Systems Review of Systems: General: No fevers, malaise, unintentional weight loss Cardiovascular: No chest pain, palpitations, or leg edema Respiratory: No shortness of breath, wheezing, cough GI: +abd pain Neuro: No headaches, weakness, paresthesias Skin: No rashes or lesions [facility] Medical History CAD (coronary artery disease) HTN (hypertension) Hyperlipidemia Surgical History (Updated 11/09/22 @ 12:35 by CHERYL Olivares) S/P CABG (coronary artery bypass graft) S/P triple vessel bypass Social History Alcohol intake: never Patient Tobacco Use Status: Former Tobacco user Quit Date: 08/23/20 Tobacco use type: Cigarette Cigarette Packs Per Day: 0.5 Years Smoked: 30 Smoked in Last 30 Days: No Use of substances other than those prescribed or required for medical reasons: No Advance Directives: No Advance Directives Information Provided: No Meds Allergies Allergy/AdvReac Type Severity Reaction Status Date / Time aloe vera [From Vagisil] Allergy Swelling Verified 11/08/22 16:07 benzocaine [From Vagisil] Allergy Swelling Verified 11/08/22 16:07 mineral oil [From Vagisil] Allergy Swelling Verified 11/08/22 16:07 resorcinol [From Vagisil] Allergy Swelling Verified 11/08/22 16:07 starch [From Vagisil] Allergy Swelling Verified 11/08/22 16:07 vitamin E (d-alpha Allergy Swelling Verified 11/08/22 16:07 tocopherol) [From Vagisil] vitamins A and D Allergy Swelling Verified 11/08/22 16:07 [From Vagisil] Active Medications: Current Medications Sodium Chloride (Ns) 1,000 mls @ 75 mls/hr IVCONT .[id number] GET Last Admin: 11/09/22 11:33 Dose: 75 mls/hr Home Medications Medication Instructions Recorded Confirmed Last Taken Type amlodipine 5 mg tablet 5 mg PO DAILY 11/09/22 11/09/22 Unknown History ascorbic acid (vitamin C) 500 mg 500 mg PO DAILY 11/09/22 11/09/22 11/09/22 History tablet (Vitamin C) aspirin 81 mg tablet,delayed 81 mg PO DAILY 11/09/22 11/09/22 11/09/22 History release atorvastatin 80 mg tablet 80 mg PO DAILY 11/09/22 11/09/22 Unknown History carvedilol 25 mg tablet 25 mg PO BID 11/09/22 11/09/22 11/09/22 History clopidogrel 75 mg tablet 75 mg PO QAM 11/09/22 11/09/22 11/09/22 History Physical Exam Vital Signs and Narrative: Vital Signs: Last Vital Signs Temp 98.0 F 11/09/22 08:50 Pulse 58 11/09/22 08:50 Resp 18 11/09/22 08:50 BP 118/64 11/09/22 08:50 Pulse Ox 96 11/09/22 08:50 O2 Del Method Room Air 11/09/22 08:50 BMI result Body Mass Index 34.2 Constitutional - Awake and Alert, No apparent distress Eyes - PERRLA, EOMI Cardiovascular - S1S2, RRR, No edema Respiratory - Normal lung expansion, Normal respiratory effort, No respiratory distress, CTA bilaterally Gastrointestinal - NT / ND; +BS; No rebound or guarding Extremities - no calf tenderness bilaterally, no swelling Skin - Warm/Dry Psychological - Appropriate affect Results Labs 11/09/22 09:07 11/09/22 09:07 Labs: Laboratory Results - last 24 hr 11/09/22 11/09/22 11/09/22 09:05 09:07 09:07 MCV 91.1 MCH 30.5 MCHC 33.5 RDW 13.2 Plt Count 187 MPV 11.5 Immature Gran % (Auto) 0.2 Neut % (Auto) 72.1 Lymph % (Auto) 18.5 L George % (Auto) 7.6 Eos % (Auto) 1.2 Baso % (Auto) 0.4 Lymph # (Auto) 1.5 George # (Auto) 0.6 Eos # (Auto) 0.1 Baso # (Auto) 0.0 Abs Immat Gran (auto) 0.02 Absolute Neuts (auto) 5.9 Absolute Nucleated RBC 0.000 Nucleated RBC % (auto) 0.0 Anion Gap 13 Estim Creat Clear Calc 85.4 Estimated GFR > 60 Random Glucose 137 H Calcium 9.2 Magnesium 2.3 Total Bilirubin 0.9 Direct Bilirubin 0.3 AST 20 ALT 19 Alkaline Phosphatase 64 Total Protein 7.0 Albumin 3.8 Lipase 21 Urine Color Yellow Urine Appearance Clear Urine pH 6.0 Ur Specific [place] 1.020 Urine Protein Trace Urine Glucose (UA) Negative Urine Ketones Trace Urine Blood Moderate (2+) H Urine Nitrite Negative Ur Leukocyte Esterase Trace H Urine RBC >20 H Urine WBC 0-5 Ur Squamous Epith Cells 0-2 Urine Bacteria None Seen Hyaline Casts 3-5 Imaging Radiologist's Impressions: Impressions Abdomen/Pelvis CT 11/09/22 10:19 IMPRESSION: 1. Appendix findings and abnormal findings right lower quadrant, as detailed above, is suspicious for acute appendicitis. Recommend surgical consultation and management.. 2. Mild bibasilar atelectasis. Additional findings and details as above. Fleischner guidelines were followed. Assessment and Plan (1) Appendicitis with nonoperative management: Status: Acute Plan 57-year-old male with history of hypertension, hyperlipidemia, coronary artery disease s/p CABG 08/2020 on DAPT who is a former smoker with about 15 pack year history who quit 2 years ago admitted to general surgery for acute appendicitis. Per General surgery, patient will be managed conservatively at this time but could progress to surgery. METS capacity > 4. Discussed with cardiology, patient is low to intermedicate risk for surgery. Recommending holding DAPT at this time. Blood pressure reasonably controlled at this time. Continue carvedilol and amlodipine. Thank you for this consult, will continue following. Time Spent With Patient Time: Total time managing care of this patient today ____ minutes.
[2022-11-09 12:21] VITALS: BP 120/67; PULSE 55; RESP 18; TEMP 36.6; O2SAT 96
[2022-11-09 12:38] LABS: Estimated Average Glucose 120 mg/dL; Hemoglobin A1c % 5.8 %
[2022-11-09] MEDS: Lactated Ringers 1,000 ML 100 ML IVCONT (13:35)
[2022-11-09 15:50] VITALS: BP 127/62; PULSE 52; RESP 18; TEMP 36.1; O2SAT 98
[2022-11-09 19:51] VITALS: BP 136/71; PULSE 59; RESP 16; TEMP 35.9
[2022-11-09 20:52] VITALS: PULSE 56; O2SAT 97
--- NOTE | 2022-11-09 20:54 | PC.NURSE ---
Addendum entered by Yuko Gomes 11/09/22 21:02: Dr. Reveles aware of carvedilol 25mg PO for 2100 being held. Original Note: Pt requested to move his Amlodipine 5mg, and Atorvastatin 80mg PO meds from 0900 to 2100, stated that's when he usually take those meds. Held pt carvedilol 25 mg PO for 2099. Pt HR was 59 and a repeat HR was taken at 56.
[2022-11-09] MEDS: Atorvastatin Calcium 80 MG TABLET PO (21:06)
[2022-11-09] MEDS: amLODIPine Besylate 5 MG TABLET PO (21:06)
[2022-11-10 04:00] VITALS: BP 133/73; PULSE 51; RESP 16; TEMP 36; O2SAT 95
[2022-11-10] MEDS: Piperacillin Sodium/Tazobactam 3.375 GM in 0.9 % Sodium Chloride 50 ML IV ×4 (05:30→23:47)
[2022-11-10 06:18] LABS: MANUAL DIFF FLAG NO
[2022-11-10 06:23] LABS: Basophils Percent Auto 0.6 % (0-2); Eosinophils Absolute Auto 0.2 X10*3/uL (0.0-0.4); Eosinophils Percent Auto 2.7 % (0-4); Hematocrit 39.9 % (42.0-52.0); Hemoglobin 13.2 g/dl (14.0-18.0); Imm Gran Abs Auto 0.02 X10*3/uL (0.00-0.03); Imm Gran Pct Auto 0.3 % (0.0-0.4); Lymphocytes Absolute Auto 1.6 X10*3/uL (1.2-4.9); Mean Corpuscular HGB Conc 33.1 g/dl (31.0-36.0); Mean Corpuscular Hemoglobin 30.8 pg (27.0-33.0); Mean Platelet Volume 12.2 fL (9.4-12.4); Monocytes Absolute Auto 0.5 X10*3/uL (0.1-1.2); Monocytes Percent Auto 8.2 % (2-11); Neutrophils Absolute Auto 4.2 x10*3/uL (2.0-8.3); Neutrophils Percent Auto 64.2 % (45-73); Platelet Count 177 X10*3/uL (160-400); Red Blood Count 4.29 X10*6/uL (4.60-5.80); Red Cell Distribution Width 13.2 % (11.0-16.0); White Blood Count 6.6 X10*3/uL (4.8-10.8)
[2022-11-10 06:39] LABS: Anion Gap 13 (12-20); Blood Urea Nitrogen 10 mg/dL (9-16); Calcium 9.1 mg/dL (8.4-10.2); Carbon Dioxide 23 mmol/L (22-29); Chloride 110 mmol/L (96-108); Creatinine Clr Calc Pharmacy 95.2; Estimated Glomerular Filt Rate > 60; Glucose Random 85 mg/dL (60-115); Potassium 3.5 mmol/L (3.3-5.1); Sodium 142 mmol/L (135-145)
[2022-11-10 07:29] VITALS: BP 124/61; PULSE 54; RESP 18; TEMP 36.4; O2SAT 95
[2022-11-10] MEDS: Ascorbic Acid 500 MG TABLET PO (09:03)
[2022-11-10] MEDS: Lactated Ringers 1,000 ML 100 ML IVCONT ×2 (09:04)
--- NOTE | 2022-11-10 09:20 | MHC.CM.PN ---
Male 57 DX Appendicites He lives with his . He is independent with all functional mobility. A copy of his HCP has been requested. Plan is Cardiac clearance and OR. DP home self care. Patient will transport home.
--- NOTE | 2022-11-10 09:50 | HO.PM.IMPN ---
Subjective Subjective Date of Service: 11/10/22 Review of Systems Follow up Appendicitis Still with pain but improved Denies nausea, vomiting, diarrhea Physical Exam Vital Signs: Vital Signs: Last Vital Signs Temp 97.6 F 11/10/22 07:29 Pulse 54 11/10/22 07:29 Resp 18 11/10/22 07:29 BP 124/61 11/10/22 07:29 Pulse Ox 95 11/10/22 07:29 O2 Del Method Room Air 11/10/22 07:29 BMI result Body Mass Index 34.2 Appearing in no acute distress lung sounds are clear to auscultation heart regular rate rhythm, clear S1, S2 positive bowel sounds, abdomen is soft, nontender neuro patient is alert x3, no focal deficits Objective Data Active Medications Acetaminophen (Acetaminophen 325 Mg Tablet) 975 mg PO Q6H PRN PRN Reason: Pain, Mild (Pain Scale 1-3) Amlodipine Besylate (Amlodipine Besylate 5 Mg Tablet) 5 mg PO DAILY@2100 [facility]; Protocol Last Admin: 11/09/22 21:06 Dose: 5 mg Documented By: ADOLFO Ascorbic Acid (Ascorbic Acid 500 Mg Tablet) 500 mg PO DAILY [facility] Last Admin: 11/10/22 09:03 Dose: 500 mg Documented By: YUNIOR Atorvastatin Calcium (Atorvastatin Calcium 80 Mg Tablet) 80 mg PO DAILY@2100 [facility] Last Admin: 11/09/22 21:06 Dose: 80 mg Documented By: ADOLFO Carvedilol (Carvedilol 25 Mg Tablet) 25 mg PO BID [facility]; Protocol Last Admin: 11/10/22 08:51 Dose: Not Given Documented By: YUNIOR Non-Admin Reason: Decreased Heart Rate Hydromorphone HCl (Hydromorphone Hcl 0.5 Mg/0.5 Ml Syringe) 0.25 mg IVPUSH Q2H PRN; Protocol PRN Reason: Pain, Moderate(Pain Scale 4-6) Sodium Chloride (Ns) 1,000 mls @ 75 mls/hr IVCONT .[id number] [facility] Last Admin: 11/10/22 01:18 Dose: Not Given Documented By: ADOLFO Non-Admin Reason: Other IVF running Lactated Ringer's (Lr) 1,000 mls @ 100 mls/hr IVCONT .Q10H [facility] Last Admin: 11/10/22 09:04 Dose: 100 mls/hr Documented By: YUNIOR Piperacillin Sod/Tazobactam (Sod 3.375 gm/ Sodium Chloride) 50 mls @ 100 mls/hr IV Q6H GET Last Infusion: 11/10/22 06:04 Dose: 0 mls/hr Documented By: ADOLFO Ondansetron HCl (Ondansetron Hcl 4 Mg/2 Ml Vial) 4 mg IVPUSH Q6H PRN PRN Reason: Nausea and Vomiting Labs 11/10/22 05:43 11/10/22 05:43 Labs: Laboratory Results - last 24 hr 11/09/22 11/10/22 11/10/22 12:22 05:43 05:43 MCV 93.0 MCH 30.8 MCHC 33.1 RDW 13.2 Plt Count 177 MPV 12.2 Immature Gran % (Auto) 0.3 Neut % (Auto) 64.2 Lymph % (Auto) 24.0 [place] % (Auto) 8.2 Eos % (Auto) 2.7 Baso % (Auto) 0.6 Lymph # (Auto) 1.6 [place] # (Auto) 0.5 Eos # (Auto) 0.2 Baso # (Auto) 0.0 Abs Immat Gran (auto) 0.02 Absolute Neuts (auto) 4.2 Absolute Nucleated RBC 0.000 Nucleated RBC % (auto) 0.0 Anion Gap 13 Estim Creat Clear Calc 95.2 Estimated GFR > 60 Random Glucose 85 Estimat Average Glucose 120 Hemoglobin A1c % 5.8 Calcium 9.1 Assessment and Plan (1) Appendicitis with nonoperative management: Status: Acute Plan 57-year-old male with history of hypertension, hyperlipidemia, coronary artery disease s/p CABG 08/2020 on DAPT who is a former smoker with about 15 pack year history who quit 2 years ago admitted to general surgery for acute appendicitis. Per General surgery, patient will be managed conservatively at this time but could progress to surgery. METS capacity > 4. Discussed with cardiology, patient is low to intermediate risk for surgery. Recommending holding DAPT at this time. Blood pressure reasonably controlled at this time. Continue carvedilol and amlodipine. Acute appendicitis Conservative management at this time including antibiotics General surgery managing Hypertension Continue carvedilol and amlodipine History of coronary artery disease Holding aspirin and Plavix in light of possible surgical procedure DVT prophylaxis with mechanical compression boots Attending Dr. Beck Full code Time Spent With Patient Time: Total time managing care of this patient today ____ minutes. Quality Stroke Does the patient have a stroke diagnosis?: No VTE Prior VTE?: No VTE Risk Level:: Surgical - moderate VTE Device Contraindication: N/A - Device Ordered VTE Drug Contraindication: N/A - Med Ordered
--- NOTE | 2022-11-10 10:21 | PM.PNGS ---
Subjective Subjective Date of Service: 11/10/22 Patient reports: no new complaints, feels better, flatus and no bowel movement Interval history: The patient reports he is feeling better and having much less pain. He is passing gas, denies any chest pain, difficulty breathing or shortness of breath. He is interested in advancing his diet. Physical Exam Vital Signs: Vital Signs: Last Vital Signs Temp 97.6 F 11/10/22 07:29 Pulse 54 11/10/22 07:29 Resp 18 11/10/22 07:29 BP 124/61 11/10/22 07:29 Pulse Ox 95 11/10/22 07:29 O2 Del Method Room Air 11/10/22 07:29 BMI result Body Mass Index 34.2 On exam he is nontoxic and in good spirits He is anicteric He is in no acute respiratory distress His abdomen is obese and soft with right lower quadrant and suprapubic discomfort more than pain. He has no diffuse peritoneal sign and overall, is improved verses yesterday's exam Objective Data Active Medications Acetaminophen (Acetaminophen 325 Mg Tablet) 975 mg PO Q6H PRN PRN Reason: Pain, Mild (Pain Scale 1-3) Amlodipine Besylate (Amlodipine Besylate 5 Mg Tablet) 5 mg PO DAILY@2100 [facility]; Protocol Last Admin: 11/09/22 21:06 Dose: 5 mg Documented By: ADOLFO Ascorbic Acid (Ascorbic Acid 500 Mg Tablet) 500 mg PO DAILY [facility] Last Admin: 11/10/22 09:03 Dose: 500 mg Documented By: YUNIOR Atorvastatin Calcium (Atorvastatin Calcium 80 Mg Tablet) 80 mg PO DAILY@2100 [facility] Last Admin: 11/09/22 21:06 Dose: 80 mg Documented By: ADOLFO Carvedilol (Carvedilol 25 Mg Tablet) 25 mg PO BID [facility]; Protocol Last Admin: 11/10/22 08:51 Dose: Not Given Documented By: YUNIOR Non-Admin Reason: Decreased Heart Rate Hydromorphone HCl (Hydromorphone Hcl 0.5 Mg/0.5 Ml Syringe) 0.25 mg IVPUSH Q2H PRN; Protocol PRN Reason: Pain, Moderate(Pain Scale 4-6) Sodium Chloride (Ns) 1,000 mls @ 75 mls/hr IVCONT .[id number] [facility] Last Admin: 11/10/22 01:18 Dose: Not Given Documented By: ADOLFO Non-Admin Reason: Other IVF running Piperacillin Sod/Tazobactam (Sod 3.375 gm/ Sodium Chloride) 50 mls @ 100 mls/hr IV Q6H [facility] Last Infusion: 11/10/22 06:04 Dose: 0 mls/hr Documented By: ADOLFO Ondansetron HCl (Ondansetron Hcl 4 Mg/2 Ml Vial) 4 mg IVPUSH Q6H PRN PRN Reason: Nausea and Vomiting Labs 11/10/22 05:43 11/10/22 05:43 Labs: Laboratory Results - last 24 hr 11/09/22 11/10/22 11/10/22 12:22 05:43 05:43 MCV 93.0 MCH 30.8 MCHC 33.1 RDW 13.2 Plt Count 177 MPV 12.2 Immature Gran % (Auto) 0.3 Neut % (Auto) 64.2 Lymph % (Auto) 24.0 [place] % (Auto) 8.2 Eos % (Auto) 2.7 Baso % (Auto) 0.6 Lymph # (Auto) 1.6 [place] # (Auto) 0.5 Eos # (Auto) 0.2 Baso # (Auto) 0.0 Abs Immat Gran (auto) 0.02 Absolute Neuts (auto) 4.2 Absolute Nucleated RBC 0.000 Nucleated RBC % (auto) 0.0 Anion Gap 13 Estim Creat Clear Calc 95.2 Estimated GFR > 60 Random Glucose 85 Estimat Average Glucose 120 Hemoglobin A1c % 5.8 Calcium 9.1 Procedures Date of Service Date of Service: 11/10/22 Progress Note: A&P Assessment and plan (1) Appendicitis with nonoperative management: Status: Acute (2) Impaired glucose regulation: Status: Acute (3) Morbid (severe) obesity due to excess calories: Status: Acute (4) S/P triple vessel bypass: Status: Acute (5) Anticoagulated: Status: Acute (6) HTN (hypertension): Status: Acute (7) CAD (coronary artery disease): Status: Acute Plan Will continue IV Zosyn for now Increase diet to clears. Patient is instructed to notify the nurses and stop drinking clears if he has bloating, worsening of pain or other significant symptoms. Will continue to trend exam and labs. Continue to hold Plavix. Time Spent With Patient Time: Total time managing care of this patient today ____ minutes. Quality Stroke Does the patient have a stroke diagnosis?: No VTE Prior VTE?: No VTE Risk Level:: Surgical - moderate VTE Device Contraindication: N/A - Device Ordered VTE Drug Contraindication: N/A - Med Ordered
[2022-11-10] MEDS: Lactated Ringers 1,000 ML 80 ML IVCONT ×2 (12:27→23:48)
[2022-11-10 16:12] VITALS: BP 135/71; PULSE 48; RESP 16; TEMP 36.2; O2SAT 99
[2022-11-10 19:31] VITALS: BP 143/75; PULSE 52; RESP 18; TEMP 36.7; O2SAT 100
[2022-11-10] MEDS: amLODIPine Besylate 5 MG TABLET PO (20:24)
[2022-11-10] MEDS: Atorvastatin Calcium 80 MG TABLET PO (20:26)
[2022-11-11 03:05] VITALS: BP 124/71; PULSE 53; RESP 16; TEMP 36.3; O2SAT 96
[2022-11-11] MEDS: Piperacillin Sodium/Tazobactam 3.375 GM in 0.9 % Sodium Chloride 50 ML IV ×2 (05:57→11:12)
[2022-11-11 07:21] VITALS: BP 139/75; PULSE 54; RESP 16; TEMP 36.1; O2SAT 98
--- NOTE | 2022-11-11 07:25 | PM.PNGS ---
Subjective Subjective Date of Service: 11/11/22 Patient reports: no new complaints, feels better, tolerating liquids well, flatus and no bowel movement Interval history: The patient reports ongoing improvement and denies any abdominal pain. He denies any bowel movement but notes he has been passing gas and is hungry. He denies chest pain, difficulty breathing, shortness of breath. Physical Exam Vital Signs: Vital Signs: Last Vital Signs Temp 96.9 F 11/11/22 07:21 Pulse 54 11/11/22 07:21 Resp 16 11/11/22 07:21 BP 139/75 11/11/22 07:21 Pulse Ox 98 11/11/22 07:21 O2 Del Method Room Air 11/11/22 07:21 BMI result Body Mass Index 34.2 On exam, he is nontoxic He remains anicteric He is in no acute respiratory distress His abdomen is obese and soft with no tenderness at all. Abdomen is benign Objective Data Active Medications Acetaminophen (Acetaminophen 325 Mg Tablet) 975 mg PO Q6H PRN PRN Reason: Pain, Mild (Pain Scale 1-3) Amlodipine Besylate (Amlodipine Besylate 5 Mg Tablet) 5 mg PO DAILY@2100 [facility]; Protocol Last Admin: 11/10/22 20:24 Dose: 5 mg Documented By: MARV Ascorbic Acid (Ascorbic Acid 500 Mg Tablet) 500 mg PO DAILY [facility] Last Admin: 11/10/22 09:03 Dose: 500 mg Documented By: YUNIOR Atorvastatin Calcium (Atorvastatin Calcium 80 Mg Tablet) 80 mg PO DAILY@2100 [facility] Last Admin: 11/10/22 20:26 Dose: 80 mg Documented By: MARV Carvedilol (Carvedilol 25 Mg Tablet) 25 mg PO BID [facility]; Protocol Last Admin: 11/10/22 20:26 Dose: Not Given Documented By: MARV Non-Admin Reason: Decreased Heart Rate Hydromorphone HCl (Hydromorphone Hcl 0.5 Mg/0.5 Ml Syringe) 0.25 mg IVPUSH Q2H PRN; Protocol PRN Reason: Pain, Moderate(Pain Scale 4-6) Piperacillin Sod/Tazobactam (Sod 3.375 gm/ Sodium Chloride) 50 mls @ 100 mls/hr IV Q6H [facility] Last Infusion: 11/11/22 06:29 Dose: 0 mls/hr Documented By: MARV Lactated Ringer's (Lr) 1,000 mls @ 80 mls/hr IVCONT .[id number] GET Last Infusion: 11/11/22 06:29 Dose: 80 mls/hr Documented By: MARV Ondansetron HCl (Ondansetron Hcl 4 Mg/2 Ml Vial) 4 mg IVPUSH Q6H PRN PRN Reason: Nausea and Vomiting Labs 11/10/22 05:43 11/10/22 05:43 Procedures Date of Service Date of Service: 11/11/22 Progress Note: A&P Assessment and plan (1) Appendicitis with nonoperative management: Status: Acute (2) Morbid (severe) obesity due to excess calories: Status: Acute (3) S/P triple vessel bypass: Status: Acute (4) Anticoagulated: Status: Acute (5) HTN (hypertension): Status: Acute (6) CAD (coronary artery disease): Status: Acute Plan Options including staying on a clear liquid diet versus advancing to a regular diet were discussed with the patient. He reports he is hungry and would like to advance his diet. If he tolerates that, he would be transition to oral antibiotics and discharge later today. 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 If the patient has increasing pain and bloating, will resume clear liquids. In the meantime, continue IV Zosyn and decrease IV fluid is ordered. Time Spent With Patient Time: Total time managing care of this patient today ____ minutes. Quality Stroke Does the patient have a stroke diagnosis?: No VTE Prior VTE?: No VTE Risk Level:: Surgical - moderate VTE Device Contraindication: N/A - Device Ordered VTE Drug Contraindication: N/A - Med Ordered
[2022-11-11] MEDS: Ascorbic Acid 500 MG TABLET PO (08:20)
[2022-11-11] MEDS: Acetaminophen 325 MG TABLET 975 MG PO (08:23)
--- NOTE | 2022-11-11 11:24 | PM.DS ---
DS: Providers Provider Date of Service: 11/11/22 Date of admission: 11/09/22 12:25 Primary care physician: Jolene Rios MD Consults: 11/09/22 11:15 Consult to General Surgery Stat Consulting Provider: [facility] General Surgeons Reason for consultation: appendicitis Has provider been notified: Yes 11/09/22 11:18 Consult to Hospitalist Routine Comment: Consulting Provider: Hospitalist Reason For Exam: appendicitis surgery requesting DS: Diagnosis Discharge Diagnosis (1) Appendicitis with nonoperative management: Status: Acute (2) Morbid (severe) obesity due to excess calories: Status: Acute (3) S/P triple vessel bypass: Status: Acute (4) Anticoagulated: Status: Acute (5) HTN (hypertension): Status: Acute (6) CAD (coronary artery disease): Status: Acute DS: Summary Hospital Course Hospital Course: See admitting H and P for full details. Briefly, this 57-year-old gentleman on Plavix because of coronary artery disease presented with abdominal pain localizing to his right lower quadrant, normal white count mild right lower quadrant tenderness. CT confirmed early appendicitis. Options of medical management versus operative management were discussed as well as the risks and possible complication and need to change plan. The patient was placed on IV Zosyn and bowel rest, by hospital day 1, he was tolerating clear liquids and had return of bowel function. On the day of discharge, his abdomen was benign, white blood cell count remained normal and he was discharged home in improved condition on Augmentin for 1 week. He will follow-up with me in 1 week, sooner if clinically changes. Time spent discussing smoking cessation with patient: more than 10 minutes Time Spent with Patient Time attestation: Total time managing care of this patient today ____ minutes. Discharge coordination time: Greater than 30 minutes Quality: Safe Use of Opioids Does Pt have an Active Cancer Diagnosis on the Problem List?: No Quality: Stroke Does the patient have a stroke diagnosis?: No Physical Exam Vital Signs: Vital Signs: Last Vital Signs Temp 96.9 F 11/11/22 07:21 Pulse 54 11/11/22 07:21 Resp 16 11/11/22 07:21 BP 139/75 11/11/22 07:21 Pulse Ox 98 11/11/22 07:21 O2 Del Method Room Air 11/11/22 07:21 BMI result Body Mass Index 34.2 Discharge Plan Discharge Anticipated Discharge Date/Time: 11/11/22 11:23 Patient Disposition: Home, Self-Care Discharge Diagnosis: Acute appendicitis, medically managed Referrals: Jolene Rios MD [Primary Care Provider] - 1 Week David Mc MD [Physician] - 1 Week Discharge Medications: New amoxicillin-pot clavulanate 875-125 mg Tablet 875 mg PO Q12H 7 Days Qty: 13 0RF Continued atorvastatin 80 mg tablet 80 mg PO DAILY carvedilol 25 mg tablet 25 mg PO BID clopidogrel 75 mg tablet 75 mg PO QAM amlodipine 5 mg tablet 5 mg PO DAILY aspirin 81 mg tablet,delayed release (DR/EC) 81 mg PO DAILY ascorbic acid (vitamin C) [Vitamin C] 500 mg Tablet 500 mg PO DAILY Discharge Orders: Discharge Order (Routine); Ordered 11/11/22 Ordered By: David Mc Diet: Advance to usual diet Activity on Discharge: As tolerated Stand Alone Forms: Patient Portal Discharge page Activity Restrictions/Additional Instructions: You were admitted to [facility] in the care of Dr. Mc because of acute appendicitis. Because of your heart disease and blood thinners, you were started on IV antibiotics and improved. You have been prescribed a 1 week course of antibiotics that you will take twice a day (1 in the morning and the other 12 hours later in the evening) and must take all of the antibiotics. You should resume your other cardiac medications You should contact your primary care provider for a follow-up appointment. Please call [phone] to schedule a follow-up appointment with Dr. Mc in 1 week. If you start having return of abdominal pain, please contact him report to the emergency room. It is recommended that you stay out of work for 1 week and will be re-evaluated for a work note at your follow-up visit. If you need a work note before your visit, please call the office. Care Plan Goals: Continue antibiotics and home medications Health Concerns: Contact your PCP for follow-up and see Dr. Mc in 1 week Plan of Treatment: Complete prescribed course of antibiotics, 1 tablet every 12 hours until gone Assessment: Acute appendicitis, medical management
--- NOTE | 2022-11-11 11:59 | MHC.CM.PN ---
PT WILL DC HOME TODAY WITH NO SERVICES VIA PRIVATE TRANSPORT
== END 2022-11-11 12:10 | disposition home or self-care (01) | DRG 373 ==
LOC: HO.ED 11:09 → HO.EDOVER 12:29 → HO.S3 13:47
PROVIDERS: Admitting Provider Surgery; Emergency Provider Emergency Medicine; PCP Internal Medicine; Visit Provider Surgery
DX: K35.30 Acute appendicitis with localized peritonitis, without perforation or gangrene (principal); I25.10 Atherosclerotic heart disease of native coronary artery without angina pectoris; E66.01 Morbid (severe) obesity due to excess calories; Z68.34 Body mass index [BMI] 34.0-34.9, adult; I10 Essential (primary) hypertension; R73.02 Impaired glucose tolerance (oral); E78.5 Hyperlipidemia, unspecified; Z95.1 Presence of aortocoronary bypass graft; Z87.891 Personal history of nicotine dependence; Z79.02 Long term (current) use of antithrombotics/antiplatelets; Z79.82 Long term (current) use of aspirin; Z79.899 Other long term (current) drug therapy
CPT/HCPCS: 36415; 74177; 80048; 80076; 81001; 83036; 83690; 83735; 85025; 99221; 99285; J2543; Q9967

== ENCOUNTER → 2022-11-09 09:11 | Outpatient (BNV) | payer OTHER, SELFPAY ==
[2021-01-04 09:33] VITALS: BP 112/62; BP 132/74
== END ==
PROVIDERS: Emergency Provider Emergency Medicine; PCP Internal Medicine; Visit Provider Surgery
DX: K35.30 Acute appendicitis with localized peritonitis, without perforation or gangrene (principal); I25.10 Atherosclerotic heart disease of native coronary artery without angina pectoris; I10 Essential (primary) hypertension; Z79.01 Long term (current) use of anticoagulants; Z95.1 Presence of aortocoronary bypass graft; E66.01 Morbid (severe) obesity due to excess calories; R73.09 Other abnormal glucose
CPT/HCPCS: 99222; 99232; 99239

== ENCOUNTER → 2022-11-09 12:25 | Outpatient (BNV) | payer OTHER, SELFPAY ==
[2021-01-04 09:33] VITALS: BP 112/62; BP 132/74
== END ==
PROVIDERS: Admitting Provider Surgery; Emergency Provider Emergency Medicine; PCP Internal Medicine; Visit Provider Physician Assistant
DX: K37 Unspecified appendicitis (principal)
CPT/HCPCS: 99222; 99232

== ENCOUNTER 2022-11-18 09:24 | Outpatient (AMB) | payer OTHER, SELFPAY ==
--- NOTE | 2022-11-18 09:27 | A.OFFVIS_ITS ---
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 Lawn Mower: Lawn Mower offered & declined Allergies aloe vera [From Vagisil] Allergy (Verified 11/08/22 16:07) Swelling benzocaine [From Vagisil] Allergy (Verified 11/08/22 16:07) Swelling mineral oil [From Vagisil] Allergy (Verified 11/08/22 16:07) Swelling resorcinol [From Vagisil] Allergy (Verified 11/08/22 16:07) Swelling starch [From Vagisil] Allergy (Verified 11/08/22 16:07) Swelling vitamin E (d-alpha tocopherol) [From Vagisil] Allergy (Verified 11/08/22 16:07) Swelling vitamins A and D [From Vagisil] Allergy (Verified 11/08/22 16:07) Swelling Medication List - Last Reconciled 11/18/22 by David Mc MD amlodipine 5 mg PO DAILY ascorbic acid (vitamin C) (Vitamin C) 500 mg PO DAILY aspirin 81 mg PO DAILY atorvastatin 80 mg PO DAILY carvedilol 25 mg PO BID clopidogrel 75 mg PO QAM HPI HPI Comments History of Present Illness Details The patient returns for follow-up after being diagnosed with early acute appendicitis by CT scan 11/09/2022. He had mild pain, a normal white blood cell count and differential, and given his cardiac history and Plavix, he wished to avoid operative intervention unless absolutely indicated. He was admitted, and over the next few days had complete resolution of his pain. Patient reports he is having no abdominal pain, is tolerating his diet and moving his bowels. He notes that he has had a gout flare involving his left leg and was placed on colchicine which caused predictable diarrhea. Patient is interested in returning to work on Friday and understands that he needs to contact his PCP regarding his questions per gout and hoarseness. [facility] Medical History CAD (coronary artery disease) HTN (hypertension) Hyperlipidemia Surgical History S/P CABG (coronary artery bypass graft) S/P triple vessel bypass Social History Household Members: Spouse Housing: Apartment Do you presently have visiting nurse or other home services: No Alcohol intake: never Patient Tobacco Use Status: Former Tobacco user Quit Date: 08/23/20 Tobacco use type: Cigarette Cigarette Packs Per Day: 0.5 Years Smoked: 30 service: No Review of Systems Const All systems reviewed & are unremarkable except as noted in HPI and below Reports as per HPI Physical Exam Vital Signs: Last Vital Signs Temp 95.9 F L 11/18/22 09:34 Pulse 64 11/18/22 09:34 BP 131/74 11/18/22 09:34 Pulse Ox 97 11/18/22 09:34 Oxygen Delivery Method Room Air 11/18/22 09:34 BMI result Body Mass Index 33.1 On exam he is anicteric and nontoxic He is walking with a cane which is his baseline He is in no respiratory distress He his abdomen is obese and soft with no rebound, rigidity, guarding and no peritoneal sign Results Reviewed Results Reviewed: We reviewed his ER visit from 11/09/2022 which showed a normal white blood cell count and a CT consistent with early appendicitis. 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 He had some questions regarding some hoarseness and voice change which is not related to his early appendicitis or medications; he is instructed to contact his PCP regarding his gout questions and any work notes related to gout. 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 He can return to work on Friday, 11/20 with no restrictions Patient will contact his PCP regarding his gout. The importance of follow-up with gastroenterology for a colonoscopy in the next few months was reviewed and apparently understood. Patient notes he has a colonoscopy for May,. The patient will contact me if he has return of his abdominal pain, and we did discuss the possible need to admit, place him on IV antibiotics and allow his Plavix several days to get out of his system followed by appendectomy. The patient notes they do prefer to avoid surgery unless absolutely indicated. His questions seemed to be satisfactorily answered and will see him back in 1 month, sooner if he changes. Coding Level of Care Code Est Pt Level 4 (27906) Diagnoses Appendicitis with nonoperative management K37 Morbid (severe) obesity due to excess calories E66.01 S/P triple vessel bypass Z95.1 Anticoagulated Z79.01 HTN (hypertension) I10 CAD (coronary artery disease) I25.10 Gout M10.9
[2022-11-18 09:34] VITALS: BP 131/74; PULSE 64; TEMP 35.5; O2SAT 97; BMI 33.1
== END 2022-11-18 09:49 | disposition home or self-care (01) ==
PROVIDERS: PCP Internal Medicine; Visit Provider Surgery
DX: K37 Unspecified appendicitis (principal); E66.01 Morbid (severe) obesity due to excess calories; Z95.1 Presence of aortocoronary bypass graft; Z79.01 Long term (current) use of anticoagulants; I10 Essential (primary) hypertension; I25.10 Atherosclerotic heart disease of native coronary artery without angina pectoris; M10.9 Gout, unspecified
CPT/HCPCS: 99214

== ENCOUNTER → 2022-11-18 09:24 | Outpatient (BNVA) | payer OTHER, SELFPAY ==
[2021-01-04 09:33] VITALS: BP 112/62; BP 132/74
== END ==
PROVIDERS: PCP Internal Medicine; Visit Provider Surgery

== ENCOUNTER 2022-12-25 08:21 | Outpatient (AMB) | payer OTHER, SELFPAY ==
--- NOTE | 2022-12-25 08:22 | A.OFFVIS_ITS ---
Intake Intake Visit Reasons: follow up appendicitis Dietitian Chief Required: No Allergies aloe vera [From Vagisil] Allergy (Verified 12/25/22 08:23) Swelling benzocaine [From Vagisil] Allergy (Verified 12/25/22 08:23) Swelling mineral oil [From Vagisil] Allergy (Verified 12/25/22 08:23) Swelling resorcinol [From Vagisil] Allergy (Verified 12/25/22 08:23) Swelling starch [From Vagisil] Allergy (Verified 12/25/22 08:23) Swelling vitamin E (d-alpha tocopherol) [From Vagisil] Allergy (Verified 12/25/22 08:23) Swelling vitamins A and D [From Vagisil] Allergy (Verified 12/25/22 08:23) Swelling Medication List - Last Reconciled 12/25/22 by David Mc MD amlodipine 5 mg PO DAILY ascorbic acid (vitamin C) (Vitamin C) 500 mg PO DAILY aspirin 81 mg PO DAILY atorvastatin 80 mg PO DAILY carvedilol 25 mg PO BID clopidogrel 75 mg PO QAM HPI HPI Comments History of Present Illness Details The patient returns for follow-up after being diagnosed with early acute appendicitis by CT scan 11/09/2022. He had mild pain, a normal white blood cell count and differential, and given his cardiac history and Plavix, he wished to avoid operative intervention unless absolutely indicated. He was admitted, and over the next few days had complete resolution of his pain. This interval change in notes that he has a colonoscopy scheduled with Gastroenterology for May,. Patient reports he is having no abdominal pain, is tolerating his diet and moving his bowels. BP med refilss needed--pt trying to contact PCP. PFSH Medical History Hyperlipidemia CAD (coronary artery disease) HTN (hypertension) Surgical History S/P CABG (coronary artery bypass graft) S/P triple vessel bypass Social History Household Members: Spouse Housing: Apartment Do you presently have visiting nurse or other home services: No Alcohol intake: never Patient Tobacco Use Status: Former Tobacco user Quit Date: 08/23/20 Tobacco use type: Cigarette Cigarette Packs Per Day: 0.5 Years Smoked: 30 service: No Review of Systems Const All systems reviewed & are unremarkable except as noted in HPI and below Reports as per HPI Results Reviewed Results Reviewed: We reviewed his ER visit from 11/09/2022 which showed a normal white blood cell count and a CT consistent with early appendicitis. 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 The importance of colonoscopy to assess his anatomy for polyps or other significant pathology was reviewed. The risk of cancer in his age group was reviewed and apparently understood. The patient was instructed to contact me if he has return of his pain, questions or is changed his mind and wants to proceed with a laparoscopic appendectomy. Otherwise, we will see him back in mid June after his colonoscopy in May,. His questions seemed to be satisfactorily answered and he said he is doing well at work. Telehealth Telehealth Location of provider rendering services: practice address Location of patient: address on file Patient Identification confirmed using: Name, : Yes Telehealth method: voice only Patient verbally consented to treatment: Yes Patient verbally consented to billing insurance company: Yes Patient informed of any privacy concerns related to visit: Yes Minutes spent on Phone/Video with Pt.: 16 Coding Level of Care Code Tele Est Pt Level 3 (13484) Diagnoses Appendicitis with nonoperative management K37 Morbid (severe) obesity due to excess calories E66.01 S/P triple vessel bypass Z95.1 Anticoagulated Z79.01 HTN (hypertension) I10 CAD (coronary artery disease) I25.10 Gout M10.9
== END 2022-12-25 08:32 | disposition home or self-care (01) ==
LOC: HO.HGS 08:21
PROVIDERS: PCP Internal Medicine; Visit Provider Surgery
DX: K37 Unspecified appendicitis (principal); E66.01 Morbid (severe) obesity due to excess calories; Z95.1 Presence of aortocoronary bypass graft; Z79.01 Long term (current) use of anticoagulants; I10 Essential (primary) hypertension; I25.10 Atherosclerotic heart disease of native coronary artery without angina pectoris; M10.9 Gout, unspecified
CPT/HCPCS: 99442

== ENCOUNTER → 2022-12-25 08:21 | Outpatient (BNVA) | payer OTHER, SELFPAY | PROVIDERS: PCP Internal Medicine; Visit Provider Surgery ==

== ENCOUNTER 2023-07-10 15:00 | Outpatient (AMB) | payer OTHER, SELFPAY ==
--- NOTE | 2023-07-10 15:03 | A.OFFVIS_ITS ---
Vital Signs 07/10/23 15:12 Height 5 ft 7 in Weight 215 lb BMI 33.7 BP 130/69 Blood Pressure Location Rt brachial Position Sitting Pulse 53 Intake Visit Reasons: follow up appendicitis Intake Note: This patient presents for a follow up appendicitis. Pt c/o; reports no changes or new onset symptoms. 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 Accompanied by: Self / Same As Patient Allergies aloe vera [From Vagisil] Allergy (Verified 07/10/23 15:10) Swelling benzocaine [From Vagisil] Allergy (Verified 07/10/23 15:10) Swelling mineral oil [From Vagisil] Allergy (Verified 07/10/23 15:10) Swelling resorcinol [From Vagisil] Allergy (Verified 07/10/23 15:10) Swelling starch [From Vagisil] Allergy (Verified 07/10/23 15:10) Swelling vitamin E (d-alpha tocopherol) [From Vagisil] Allergy (Verified 07/10/23 15:10) Swelling vitamins A and D [From Vagisil] Allergy (Verified 07/10/23 15:10) Swelling Medication List - Last Reconciled 07/10/23 by Yobani An MD amlodipine 5 mg PO DAILY ascorbic acid (vitamin C) (Vitamin C) 500 mg PO DAILY aspirin 81 mg PO DAILY atorvastatin 80 mg PO DAILY carvedilol 25 mg PO BID celecoxib 200 mg PO DAILY clopidogrel 75 mg PO QAM probenecid 500 mg PO BID tadalafil 2.5 mg PO DAILY PRN HPI HPI follow up appendicitis: Details: 58-year-old male here for follow-up for history of acute appendicitis. He was admitted by Dr. Mc last October, because of early acute appendicitis. He was on Plavix and had a cardiac history so he wanted to avoid surgery at that time. He was managed nonoperatively and he had resolution of symptoms He had been instructed by Dr. Mc to undergo colonoscopy as he has never had 1 before. The patient says that he was scheduled to have this done but had to cancel this because of some issues. He says he usually goes to [facility] for his healthcare He currently denies any significant complaints. Denies any GI issues. He denies any weight loss or problems with oral intake. Denies any abdominal pain. [facility] Medical History History of appendicitis Hyperlipidemia CAD (coronary artery disease) HTN (hypertension) Surgical History S/P CABG (coronary artery bypass graft) S/P triple vessel bypass Social History Household Members: Spouse Housing: Apartment Do you presently have visiting nurse or other home services: No Alcohol intake: never Patient Tobacco Use Status: Former Tobacco user Quit Date: 08/23/20 Tobacco use type: Cigarette Cigarette Packs Per Day: 0.5 Years Smoked: 30 service: No Review of Systems Const Denies chills and Denies fever(s) Card Denies chest pain, Denies dyspnea and Denies dyspnea on exertion Resp Denies cough, Denies dyspnea and Denies dyspnea on exertion GI Denies hematochezia and Denies change in bowel habits Denies hematuria and Denies difficulty urinating Musc Denies back pain and Denies limited range of motion Neuro Denies focal weakness and Denies convulsions Psych Denies depression and Denies mood swings Physical Exam Vital Signs: Last Vital Signs Pulse 53 07/10/23 15:12 BP 130/69 07/10/23 15:12 BMI result Body Mass Index 33.7 Const General: comfortable and no acute distress Orientation/consciousness: patient oriented x3 Neck Neck: Yes no lymphadenopathy Resp Auscultation: clear to auscultation bilaterally Cardio Rhythm: regular rhythm GI Palpation (GI): Soft to palpation, nontender and no guarding Neuro General: patient oriented x3 Assessment & Plan Assessment & Plan (1) History of appendicitis: Code(s): Z87.19 - Personal history of other diseases of the digestive system Category: Medical Plan: I am going to order for a follow-up CT scan to rule out any other pathology at this time.. He does remain asymptomatic. He denies any GI complaints He also emphasized to him that he should scheduled for his colonoscopy. I told him that he should discuss this with his primary care physician at the [facility]. He seems to understand the above well. He seems to be doing well overall I will see him in the office again to discuss his CAT scan. Orders: Orders CT abdomen pelvis w IV con Today Z87.19 - Personal history of other diseases of the digestive system Creatinine Today Z87.19 - Personal history of other diseases of the digestive system Blood Urea Nitrogen Today Z87.19 - Personal history of other diseases of the digestive system
[2023-07-10 15:12] VITALS: BP 130/69; PULSE 53; BMI 33.7
== END 2023-07-10 15:49 | disposition home or self-care (01) ==
PROVIDERS: PCP Internal Medicine; Visit Provider Surgery
DX: Z87.19 Personal history of other diseases of the digestive system (principal)
CPT/HCPCS: 99213

== ENCOUNTER → 2023-07-10 15:00 | Outpatient (BNVA) | payer OTHER, SELFPAY ==
[2021-01-04 09:33] VITALS: BP 112/62; BP 132/74
== END ==
PROVIDERS: PCP Internal Medicine; Visit Provider Surgery

== ENCOUNTER 2023-07-11 10:57 | Outpatient (REF) | payer OTHER, SELFPAY ==
[2023-07-11 12:48] LABS: Blood Urea Nitrogen 14 mg/dL (9-16); Estimated Glomerular Filt Rate > 60
== END 2023-07-11 10:58 | disposition home or self-care (01) ==
LOC: HO.LAB 10:57
PROVIDERS: PCP Internal Medicine; Visit Provider Surgery
DX: Z87.19 Personal history of other diseases of the digestive system (principal)
CPT/HCPCS: 36415; 82565; 84520

== ENCOUNTER 2023-09-03 09:48 | Outpatient (REF) | payer OTHER, SELFPAY ==
--- NOTE | ~2023-09-03 | CT_ITS ---
EXAMINATION: CT ABDOMEN AND PELVIS WITH CONTRAST CLINICAL INFORMATION: History of appendicitis COMPARISON: CT abdomen and pelvis 11/09/2022 TECHNIQUE: Multidetector volumetric images were obtained from the superior aspect of the liver through the pubic symphysis following administration 85 mL of Omnipaque 350 intravenous contrast. Sagittal and coronal reformatted images were obtained on the technologist's workstation. Oral contrast: No This CT examination was performed using dose optimization techniques as appropriate, variously including the following: *Automated exposure control *Adjustment of mA and/or kV according to patient size (this includes techniques or standardized protocols for targeted exams where dose is matched to indication/reason for exam; i.e. extremities or head) *Use of iterative reconstruction technique DLP: 488 mGy-cm FINDINGS: LUNG BASES: Unremarkable. ABDOMINAL AND PELVIC WALL: Small fat-containing umbilical hernia. LIVER AND BILIARY TREE: Unremarkable. GALLBLADDER: Unremarkable. PANCREAS: Unremarkable. SPLEEN: Unremarkable. ADRENAL GLANDS: Unremarkable. KIDNEYS AND URETERS: Unremarkable. GASTROINTESTINAL TRACT: Colonic diverticulosis without evidence of diverticulitis. Extraluminal air to suggest perforation or organized fluid collection to suggest abscess. Appendix is dilated to 1.3 cm with with periappendiceal inflammatory stranding and appendicolith, previously was seen dilated to 1.1 cm. VASCULAR: Unremarkable. LYMPH NODES/PERITONEUM: No lymphadenopathy. FREE FLUID: None. BLADDER: Unremarkable. PELVIC VISCERA: Unremarkable. OSSEOUS STRUCTURES: Unremarkable. CT/CT abdomen pelvis w IV con IMPRESSION: Appendix is dilated to 1.3 cm with periappendiceal inflammatory stranding and appendicolith, previously was seen dilated to 1.1 cm suspicious for recurrent acute appendicitis. No evidence of perforation or organized fluid collection to suggest abscess. The findings and recommendations were discussed with on-call physician covering for ordering provider Yobani An by telephone at 09/26/2023 4:55 PM and it was ascertained that the content and urgency of the report was understood at the time of direct communication. This exam was submitted to the interpreting radiologist for interpretation on 09/26/2023 4:33 PM.
[2023-09-03] MEDS: iohexoL 350 MG/ML 100 ML INFUS..BTL 85 ML IV (11:00)
[2023-09-04 07:12] LABS: Creatinine POC 0.8 mg/dL (0.5-1.4); GFR POC > 60
== END 2023-09-03 09:49 | disposition home or self-care (01) ==
LOC: HO.CT 09:48
PROVIDERS: PCP Internal Medicine; Visit Provider Surgery
DX: Z87.19 Personal history of other diseases of the digestive system (principal)
CPT/HCPCS: 74177; 82565; Q9967

== ENCOUNTER 2023-09-29 15:55 | Outpatient (AMB) | payer OTHER, SELFPAY ==
[2021-01-04 09:33] VITALS: BP 112/62; BP 132/74
[2023-09-29 15:56] VITALS: BP 125/62; PULSE 62; BMI 33.7
--- NOTE | 2023-09-29 15:56 | MHC.OFFVIS ---
Vital Signs 09/29/23 15:56 Height 5 ft 7 in Weight 215 lb BMI 33.7 BP 125/62 Blood Pressure Location Rt brachial Position Sitting Pulse 62 Intake Visit Reasons: Follow up CT abd/pelvis results Intake Note: This patient presents for a follow up CT abd/pelvis results. Patient c/o; reports no complaints. 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 Accompanied by: Self / Same As Patient Allergies aloe vera [From Vagisil] Allergy (Verified 09/29/23 16:02) Swelling benzocaine [From Vagisil] Allergy (Verified 09/29/23 16:02) Swelling mineral oil [From Vagisil] Allergy (Verified 09/29/23 16:02) Swelling resorcinol [From Vagisil] Allergy (Verified 09/29/23 16:02) Swelling starch [From Vagisil] Allergy (Verified 09/29/23 16:02) Swelling vitamin E (d-alpha tocopherol) [From Vagisil] Allergy (Verified 09/29/23 16:02) Swelling vitamins A and D [From Vagisil] Allergy (Verified 09/29/23 16:02) Swelling Medication List - Last Reconciled 09/29/23 by Yobani An MD amlodipine 5 mg PO DAILY ascorbic acid (vitamin C) (Vitamin C) 500 mg PO DAILY aspirin 81 mg PO DAILY atorvastatin 80 mg PO DAILY carvedilol 25 mg PO BID celecoxib 200 mg PO DAILY clopidogrel 75 mg PO QAM probenecid 500 mg PO BID tadalafil 2.5 mg PO DAILY PRN HPI HPI Follow up CT abd/pelvis results: Details: 58-year-old male here for follow-up for history of acute appendicitis. He was admitted by Dr. Mc last October, because of early acute appendicitis. He was on Plavix and had a cardiac history so he wanted to avoid surgery at that time. He was managed nonoperatively and he had resolution of symptoms. I had seen him last month and schedule him for a follow-up CT scan. He had been instructed by Dr. Mc to undergo colonoscopy as he has never had 1 before. The patient says that he was scheduled to have this done but had to cancel this because of some issues. He says he usually goes to [facility] for his healthcare He currently denies any significant complaints. Denies any GI issues. He denies any weight loss or problems with oral intake. Denies any abdominal pain. He denies any problems with oral intake. [facility] Medical History History of appendicitis Hyperlipidemia CAD (coronary artery disease) HTN (hypertension) Surgical History S/P CABG (coronary artery bypass graft) S/P triple vessel bypass Social History Household Members: Spouse Housing: Apartment Do you presently have visiting nurse or other home services: No Alcohol intake: never Patient Tobacco Use Status: Former Tobacco user Tobacco use type: Cigarette Cigarette Packs Per Day: 0.5 Years Smoked: 30 service: No Review of Systems Const Denies chills and Denies fever(s) Card Denies chest pain, Denies dyspnea and Denies dyspnea on exertion Resp Denies cough, Denies dyspnea and Denies dyspnea on exertion GI Denies hematochezia and Denies change in bowel habits Denies hematuria and Denies difficulty urinating Musc Denies back pain and Denies limited range of motion Neuro Denies focal weakness and Denies convulsions Psych Denies depression and Denies mood swings Physical Exam Const General: comfortable and no acute distress Orientation/consciousness: patient oriented x3 Neck Neck: Yes no lymphadenopathy Resp Auscultation: clear to auscultation bilaterally Cardio Rhythm: regular rhythm GI Palpation (GI): Soft to palpation, nontender and no guarding Neuro General: patient oriented x3 Assessment & Plan Assessment & Plan (1) History of appendicitis: Code(s): Z87.19 - Personal history of other diseases of the digestive system Category: Medical Plan: He had been seen by Dr. Mc last year and was treated conservatively. I would therefore ordered for a follow-up CT scan. This shows persistent mild stranding around the appendix along with an appendicolith. The appendix is also dilated. Clinically he does not seem to present with acute appendicitis. He had has had no colonoscopy yet. He denies any abdominal pain. He says he feels well overall. He does not want to proceed with appendectomy despite the findings as above. He says that his is also ill at this time and she is helping take care of her at home He does not want to proceed with a colonoscopy either. He understands the rationale for doing this but says that he had never wanted to have a colonoscopy in the past. He understands that the appendiceal process could be secondary to a neoplastic pathology although the possibility is low. I did tell him that the very least, he should be followed up in the office. I will see him again in the office in 3 months and he says he is comfortable with that plan. Coding Level of Care Code Est Pt Level 3 (26745) Diagnoses History of appendicitis Z87.19
== END 2023-09-29 16:08 | disposition home or self-care (01) ==
PROVIDERS: PCP Internal Medicine; Visit Provider Surgery
DX: Z87.19 Personal history of other diseases of the digestive system (principal)
CPT/HCPCS: 99213

== ENCOUNTER → 2023-09-29 15:55 | Outpatient (BNVA) | payer OTHER, SELFPAY ==
[2021-01-04 09:33] VITALS: BP 112/62; BP 132/74
== END ==
PROVIDERS: PCP Internal Medicine; Visit Provider Surgery

== ENCOUNTER 2023-12-29 15:59 | Outpatient (AMB) | payer OTHER, SELFPAY ==
--- NOTE | 2023-12-29 16:01 | MHC.OFFVIS ---
Vital Signs 12/29/23 16:05 Height 5 ft 7 in Weight 212 lb BMI 33.2 Intake Visit Reasons: [address] abd/pelvis results Intake Note: This patient presents for three month follow-up for CT abd/pelvis results. Pt c/o; reports occasional twinge. 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 Accompanied by: Self / Same As Patient Allergies aloe vera [From Vagisil] Allergy (Verified 12/29/23 16:06) Swelling benzocaine [From Vagisil] Allergy (Verified 12/29/23 16:06) Swelling mineral oil [From Vagisil] Allergy (Verified 12/29/23 16:06) Swelling resorcinol [From Vagisil] Allergy (Verified 12/29/23 16:06) Swelling starch [From Vagisil] Allergy (Verified 12/29/23 16:06) Swelling vitamin E (d-alpha tocopherol) [From Vagisil] Allergy (Verified 12/29/23 16:06) Swelling vitamins A and D [From Vagisil] Allergy (Verified 12/29/23 16:06) Swelling Medication List - Last Reconciled 12/29/23 by Yobani An MD amlodipine 5 mg PO DAILY ascorbic acid (vitamin C) (Vitamin C) 500 mg PO DAILY aspirin 81 mg PO DAILY atorvastatin 80 mg PO DAILY carvedilol 25 mg PO BID celecoxib 200 mg PO DAILY clopidogrel 75 mg PO QAM probenecid 500 mg PO BID tadalafil 2.5 mg PO DAILY PRN HPI HPI [address] abd/pelvis results: Details: He is here for follow-up for his history of acute appendicitis. He had previously seen by Dr. Mc last year. I had sent him for a follow-up CT scan last September,. He is here to review the findings although I had called him about this already in September He occasionally has some pain in the right lower quadrant although he says that this is not severe at all. He has good oral intake. He denies any problems with bowel movements. He denies any episodes of fever or chills. [facility] Medical History History of appendicitis Hyperlipidemia CAD (coronary artery disease) HTN (hypertension) Surgical History S/P CABG (coronary artery bypass graft) S/P triple vessel bypass Social History Household Members: Spouse Housing: Apartment Do you presently have visiting nurse or other home services: No Alcohol intake: never Patient Tobacco Use Status: Former Tobacco user Tobacco use type: Cigarette Cigarette Packs Per Day: 0.5 Years Smoked: 30 service: No Review of Systems Const Denies chills and Denies fever(s) Card Denies chest pain, Denies dyspnea and Denies dyspnea on exertion Resp Denies cough, Denies dyspnea and Denies dyspnea on exertion GI Denies hematochezia and Denies change in bowel habits Denies hematuria and Denies difficulty urinating Musc Denies back pain and Denies limited range of motion Neuro Denies focal weakness and Denies convulsions Psych Denies depression and Denies mood swings Physical Exam Vital Signs: BMI result Body Mass Index 33.2 Const Other: Morbidly obese General: comfortable and no acute distress Orientation/consciousness: patient oriented x3 Neck Neck: Yes no lymphadenopathy Resp Auscultation: clear to auscultation bilaterally Cardio Rhythm: regular rhythm GI Palpation (GI): Soft to palpation, nontender and no guarding Neuro General: patient oriented x3 Assessment & Plan Assessment & Plan (1) History of appendicitis: Code(s): Z87.19 - Personal history of other diseases of the digestive system Category: Medical Plan: I have discussed with him his CT scan findings some September,. This shows a dilated appendix, up to 1.3 cm with periappendiceal inflammatory stranding and an appendicolith. I had discussed with him over the phone. 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 He had this arranged before with [place] but he said he did not go ahead. I emphasized to him that this is important it and he should have this done before appendectomy. I also advised him on the benefits of weight loss because of his morbid obesity I gave him my calling card and instructed him to call me if he has any problems scheduling his colonoscopy with his primary care physician in [place]. He does have other medical issues so I also emphasized to him that it was important to have a follow up with his primary care physician. Coding Level of Care Code Est Pt Level 4 (93495) Diagnoses History of appendicitis Z87.19
[2023-12-29 16:05] VITALS: BMI 33.2
== END 2023-12-29 16:19 | disposition home or self-care (01) ==
PROVIDERS: PCP Internal Medicine; Visit Provider Surgery
DX: Z87.19 Personal history of other diseases of the digestive system (principal)
CPT/HCPCS: 99214

== ENCOUNTER → 2023-12-29 15:59 | Outpatient (BNVA) | payer OTHER, SELFPAY ==
[2021-01-04 09:33] VITALS: BP 112/62; BP 132/74
== END ==
PROVIDERS: PCP Internal Medicine; Visit Provider Surgery